=== PATIENT | male | born 1935 | race Two or more races ===

== ENCOUNTER 2023-05-28 06:35 | Inpatient (IN) | payer OTHER ==
[~2023-05-28] VITALS: Ht 170.2 cm; Wt 66.0 kg
[2023-05-28] VITALS (50 sets, daily range): BP systolic 99–131; BP diastolic 53–75; PULSE 65–184; RESP 14–26; TEMP 97.5–98.1; O2SAT 93–97
[2023-05-28] MEDS: CEFEPIME 2GM/50ML NS 50 ML IV SCH (01:10)
[2023-05-28] MEDS ORDERED: dilTIAZem 25 MG/5 ML VIAL IV ONE ×2 (06:43→07:30)
[2023-05-28] MEDS ORDERED: ETOMIDATE (2MG/ML) 20ML VIAL IV ONE (06:46)
[2023-05-28] MEDS ORDERED: ROCURONIUM 10MG/ML 10ML VIAL IV ONE (06:46)
[2023-05-28] MEDS ORDERED: methylPREDNISolone SOD SUCC 125 MG/2 ML VL ONE (06:47)
[2023-05-28] MEDS ORDERED: MIDAZOLAM DRIP 50 mg/50mL 50 ML IV ONE (06:55)
[2023-05-28] MEDS ORDERED: dilTIAZem 125mg/125ml BAG KIT 125 ML IV ONE (07:15)
[2023-05-28] MEDS ORDERED: AZITHROMYCIN 500MG/ 250ML 250 ML IV ONE (07:30)
[2023-05-28] MEDS ORDERED: cefTRIAXone 1GM/50ML D5W 50 ML IV ONE (07:30)
[2023-05-28 07:41] LABS: Basophils # (auto) 0 10 ^3/uL (0-0.2); Basophils % (auto) 0.3 % (0.0-2.0); Eosinophils # (auto) 0.1 10 ^3/uL (0-0.8); Eosinophils % (auto) 0.6 % (0.0-7.0); Hematocrit 44.3 % (41.0-53.0); Hemoglobin 14.5 g/dL (13.5-17.5); Lymphocytes % (auto) 18.1 % (10.0-50.0); Mean Corpuscular Hemoglobin 30.8 pg (28.0-32.0); Mean Corpuscular Hgb Conc. 32.7 g/dL (32.0-36.0); Mean Corpuscular Volume 94.1 fL (80.0-100.0); Monocytes # (auto) 1.1 10 ^3/uL (0-1.3); Monocytes % (auto) 6.5 % (0.0-12.0); Neutrophils # (auto) 12.5 10 ^3/uL (1.6-8.6); Neutrophils % (auto) 74.5 % (37.0-80.0); Nucleated Red Blood Cells % 0.1 %; Red Blood Cells 4.71 10^6/uL (4.5-5.90); Red Cell Distribution Width 13.9 % (11.8-14.3); White Blood Cell 16.8 10^3/uL (4.4-10.8)
[2023-05-28 07:54] LABS: Alanine Aminotransferase 46 U/L (7-40); Albumin 4.2 g/dL (3.2-4.8); Alkaline Phosphatase 103 U/L (46-116); Anion Gap 8 (5-15); Aspartate Aminotransferase 38 U/L (13-40); BUN/Creatinine Ratio 17.4 (10.0-20.0); Blood Urea Nitrogen 15 mg/dL (9-23); Calcium 8.8 mg/dL (8.5-10.1); Carbon Dioxide 27 mmol/L (20-30); Chloride 105 mmol/L (98-107); Glucose 144 mg/dL (74-106); Potassium 4.4 mmol/L (3.5-5.1); Sodium 140 mmol/L (136-145)
[2023-05-28 07:55] LABS: Bilirubin, Total 0.6 mg/dL (0.2-1.0); Total Protein 6.4 g/dL (5.7-8.2)
[2023-05-28 07:57] LABS: INR 1.36 (0.9-1.15); Partial Thromboplastin Time 32.2 SEC (24.5-34.5)
[2023-05-28] MEDS ORDERED: ACETAMINOPHEN 650 MG RECT SUPP PR ONE (08:00)
[2023-05-28 08:04] LABS: Base Excess -3.3 mmol/L (-2.0-2.0)
[2023-05-28 08:08] LABS: Urine Bacteria NONE SEEN /hpf (None Seen); Urine Blood Negative /uL (Negative); Urine Clarity Clear (Clear); Urine Hyaline Cast FEW /lpf (0 - 2); Urine Protein, UAD TRACE (Negative); Urine Specific Gravity 1.016 (1.001-1.035); Urine Urobilinogen Normal (Negative); Urine WBC 1 /hpf (0 - 3)
[2023-05-28 08:09] LABS: Urine Color Straw (Yellow)
[2023-05-28 08:37] LABS: COVID19 ANTIGEN SOFIA FIA NEGATIVE (NEGATIVE); Rapid Influenza A Negative (Negative); Rapid Influenza B Negative (Negative)
[2023-05-28] MEDS ORDERED: DIGOXIN (250MCG/ML) 2 ML AMPULE IV ONE (08:45)
[2023-05-28] MEDS ORDERED: SODIUM CHLORIDE 0.9% 500 ML IV ONE (09:00)
[2023-05-28] MEDS ORDERED: MAGNESIUM SULFATE 1GM/100ML 100 ML IV ONE (09:00)
[2023-05-28 09:39] LABS: Base Excess -1.2 mmol/L (-2.0-2.0)
[2023-05-28] MEDS ORDERED: NOREPINEPHRINE 8 MG/250ML KIT 250 ML IV SCH (10:00)
[2023-05-28] MEDS ORDERED: NOREPINEPHRINE 8 MG/250ML KIT 250 ML IV ONE ×2 (10:00→18:09)
[2023-05-28] MEDS: ENOXAPARIN SOD 40 MG/0.4 ML SYRINGE SC SCH (10:30)
[2023-05-28] MEDS ORDERED: ONDANSETRON HCL 4 MG/2 ML VIAL IV PRN (10:30)
[2023-05-28] MEDS: SODIUM CHLORIDE 0.9% 1,000 ML IV SCH ×3 (10:52→19:30)
[2023-05-28 11:01] LABS: Magnesium 1.7 mg/dL (1.6-2.6)
[2023-05-28 11:03] LABS: Phosphorus 4.1 mg/dL (2.4-5.1)
[2023-05-28] MEDS: NOREPINEPHRINE BITARTRATE 16 MG in SODIUM CHL 0.9% 234 ML IV SCH ×2 (11:24→20:14)
[2023-05-28] MEDS: MIDAZOLAM DRIP 50 mg/50mL 50 ML IV SCH ×2 (11:28→15:52)
[2023-05-28] MEDS: PHENYLEPHRINE INJ 40 MG in SODIUM CHL 0.9% 246 ML IV SCH (11:38)
[2023-05-28] MEDS: methylPREDNISolone SOD SUCC 125 MG/2 ML VL IV SCH (14:09)
[2023-05-28] MEDS ORDERED: dilTIAZem 125mg/125ml BAG KIT 125 ML IV SCH (14:15)
[2023-05-28] MEDS ORDERED: VANCOMYCIN PER PHARMACY 0 MG IV SCH (19:30)
[2023-05-28] MEDS ORDERED: VANCOMYCIN 1GM/200ML 200 ML IV ONE (20:00)
[2023-05-29] VITALS (104 sets, daily range): BP systolic 95–140; BP diastolic 56–92; PULSE 59–91; RESP 16–26; TEMP 97.2–98.2; O2SAT 96–98
[2023-05-29] MEDS: methylPREDNISolone SOD SUCC 125 MG/2 ML VL IV SCH ×3 (01:13→21:53)
[2023-05-29] MEDS: PHENYLEPHRINE INJ 40 MG in SODIUM CHL 0.9% 246 ML IV SCH ×2 (03:20→19:27)
[2023-05-29] MEDS: MIDAZOLAM DRIP 50 mg/50mL 50 ML IV SCH ×4 (03:21→22:19)
[2023-05-29 04:10] LABS: Hematocrit 44.3 % (41.0-53.0); Hemoglobin 14.6 g/dL (13.5-17.5); Mean Corpuscular Hemoglobin 30.8 pg (28.0-32.0); Mean Corpuscular Hgb Conc. 32.8 g/dL (32.0-36.0); Red Blood Cells 4.72 10^6/uL (4.5-5.90); White Blood Cell 28.7 10^3/uL (4.4-10.8)
[2023-05-29 04:25] LABS: Alanine Aminotransferase 28 U/L (7-40); Albumin 3.7 g/dL (3.2-4.8); Alkaline Phosphatase 64 U/L (46-116); Anion Gap 7 (5-15); Aspartate Aminotransferase 12 U/L (13-40); BUN/Creatinine Ratio 16.8 (10.0-20.0); Blood Urea Nitrogen 16 mg/dL (9-23); Calcium 8.5 mg/dL (8.7-10.4); Carbon Dioxide 24 mmol/L (20-30); Chloride 106 mmol/L (98-107); Glucose 200 mg/dL (74-106); Potassium 4.4 mmol/L (3.5-5.1); Sodium 137 mmol/L (136-145)
[2023-05-29 04:26] LABS: Bilirubin, Total 0.7 mg/dL (0.2-1.0); Total Protein 5.9 g/dL (5.7-8.2)
[2023-05-29 04:29] LABS: Basophils % (manual) 0 (0.0-2.0); Blast Cells 0; Eosinophils % (manual) 0 (0-7); Metamyelocytes % 0; Myelocytes % 0; Promyelocytes % 0; Reactive Lymphocytes 0
[2023-05-29 06:17] LABS: Band Neutrophils % (manual) 6; Giant Platelets Few; Lymphocytes % (manual) 4 (10.0-50.0); Monocytes % (manual) 4 (0-12); Platelet Estimate Adequate
[2023-05-29] MEDS: NOREPINEPHRINE BITARTRATE 16 MG in SODIUM CHL 0.9% 234 ML IV SCH (08:12)
[2023-05-29] MEDS: SODIUM CHLORIDE 0.9% 1,000 ML IV SCH ×2 (08:13→23:44)
[2023-05-29] MEDS ORDERED: cefTRIAXone 1GM/50ML D5W 50 ML IV SCH (09:00)
[2023-05-29] MEDS: CEFEPIME 2GM/50ML NS 50 ML IV SCH ×2 (09:10→21:53)
[2023-05-29] MEDS: ENOXAPARIN SOD 40 MG/0.4 ML SYRINGE SC SCH ×4 (09:10→21:55)
[2023-05-29] MEDS: PANTOPRAZOLE 40 MG/10 ML VIAL INJ IV SCH (09:10)
[2023-05-29] MEDS ORDERED: AZITHROMYCIN 500MG/ 250ML 250 ML IV SCH (10:00)
[2023-05-29 10:14] LABS: Base Excess -2.8 mmol/L (-2.0-2.0)
[2023-05-29] MEDS ORDERED: dilTIAZem 120MG ER CAP PO ONE (10:45)
[2023-05-29 10:46] LABS: Triglycerides 52 mg/dL (< 150)
[2023-05-29 10:47] LABS: LDL Cholesterol 22 mg/dL (< 100)
[2023-05-29 10:48] LABS: Cholesterol 75 mg/dL (< 200); HDL Cholesterol 40 mg/dL (40-59)
[2023-05-29] MEDS: IPRATROPIUM BROM 0.5 MG/2.5ML INH SOL NEB SCH ×2 (12:00→18:26)
[2023-05-29] MEDS: VANCOMYCIN 1GM/200ML 200 ML IV SCH (12:04)
[2023-05-29] MEDS: dilTIAZem HCL 60 MG TAB PO SCH ×3 (12:59→23:52)
[2023-05-29 18:59] LABS: Urine Bacteria FEW /hpf (None Seen); Urine Blood 3+ /uL (Negative); Urine Clarity CLOUDY (Clear); Urine Color BROWN (Yellow); Urine Mucus FEW (None Seen); Urine Protein, UAD 2+ (Negative); Urine Specific Gravity 1.032 (1.001-1.035); Urine Urobilinogen Normal (Negative); Urine WBC 146 /hpf (0 - 3); Urine WBC Clumps PRESENT /hpf (None Seen); Urine pH 5.5 (5.0-8.0)
[2023-05-29] MEDS ORDERED: ATORVASTATIN 20 MG TAB PO SCH (22:00)
[2023-05-30] VITALS (117 sets, daily range): BP systolic 104–149; BP diastolic 67–95; PULSE 73–99; RESP 17–25; TEMP 97.5–99; O2SAT 93–97
[2023-05-30] MEDS: IPRATROPIUM BROM 0.5 MG/2.5ML INH SOL NEB SCH ×4 (00:03→18:18)
[2023-05-30] MEDS: VANCOMYCIN 1GM/200ML 200 ML IV SCH (04:03)
[2023-05-30 04:04] LABS: Chloride 108 mmol/L (98-107); Potassium 4.2 mmol/L (3.5-5.1); Sodium 139 mmol/L (136-145)
[2023-05-30 04:05] LABS: Anion Gap 8 (5-15); Basophils # (auto) 0 10 ^3/uL (0-0.2); Basophils % (auto) 0.1 % (0.0-2.0); Calcium 8.9 mg/dL (8.5-10.1); Carbon Dioxide 23 mmol/L (20-30); Eosinophils # (auto) 0 10 ^3/uL (0-0.8); Hematocrit 38.9 % (41.0-53.0); Lymphocytes # (auto) 0.6 10 ^3/uL (0.4-5.4); Lymphocytes % (auto) 3.4 % (10.0-50.0); Mean Corpuscular Hemoglobin 31.1 pg (28.0-32.0); Mean Corpuscular Hgb Conc. 33.4 g/dL (32.0-36.0); Mean Corpuscular Volume 93.2 fL (80.0-100.0); Monocytes # (auto) 0.9 10 ^3/uL (0-1.3); Monocytes % (auto) 4.7 % (0.0-12.0); Neutrophils # (auto) 16.8 10 ^3/uL (1.6-8.6); Neutrophils % (auto) 91.8 % (37.0-80.0); Red Blood Cells 4.18 10^6/uL (4.5-5.90); Red Cell Distribution Width 14.3 % (11.8-14.3); White Blood Cell 18.3 10^3/uL (4.4-10.8)
[2023-05-30 04:10] LABS: BUN/Creatinine Ratio 22.9 (10.0-20.0); Blood Urea Nitrogen 19 mg/dL (9-23); Glucose 144 mg/dL (74-106)
[2023-05-30] MEDS: MIDAZOLAM DRIP 50 mg/50mL 50 ML IV SCH ×4 (05:02→20:21)
[2023-05-30] MEDS: dilTIAZem HCL 60 MG TAB PO SCH ×3 (06:01→17:46)
[2023-05-30 08:04] LABS: Base Excess -1.1 mmol/L (-2.0-2.0)
[2023-05-30] MEDS: SODIUM CHLORIDE 0.9% 1,000 ML IV SCH (09:56)
[2023-05-30] MEDS: PANTOPRAZOLE 40 MG/10 ML VIAL INJ IV SCH (10:02)
[2023-05-30] MEDS: methylPREDNISolone SOD SUCC 125 MG/2 ML VL IV SCH (10:02)
[2023-05-30] MEDS: ENOXAPARIN SOD 40 MG/0.4 ML SYRINGE SC SCH (10:03)
[2023-05-30] MEDS: CEFEPIME 2GM/50ML NS 50 ML IV SCH (10:03)
[2023-05-30] MEDS: NOREPINEPHRINE BITARTRATE 16 MG in SODIUM CHL 0.9% 234 ML IV SCH (11:00)
[2023-05-30] MEDS ORDERED: Jevity 1.2 Cal/Fiber 1 Liter GT SCH (12:45)
[2023-05-30] MEDS: PHENYLEPHRINE INJ 40 MG in SODIUM CHL 0.9% 246 ML IV SCH (13:00)
[2023-05-30] MEDS: ENOXAPARIN SOD 80 MG/0.8ML SYRINGE SC SCH (21:56)
[2023-05-30] MEDS: fentaNYL Drip 2500mCg/250mlNS 250 ML IV SCH (22:04)
[2023-05-31] VITALS (118 sets, daily range): BP systolic 101–166; BP diastolic 71–111; PULSE 62–96; RESP 12–60; TEMP 97–99.1; O2SAT 92–98
[2023-05-31] MEDS: IPRATROPIUM BROM 0.5 MG/2.5ML INH SOL NEB SCH ×4 (00:22→18:28)
[2023-05-31] MEDS: dilTIAZem HCL 60 MG TAB PO SCH ×4 (00:25→17:58)
[2023-05-31] MEDS: MIDAZOLAM DRIP 50 mg/50mL 50 ML IV SCH ×4 (00:34→19:48)
[2023-05-31] MEDS: SODIUM CHLORIDE 0.9% 1,000 ML IV SCH (00:34)
[2023-05-31 03:57] LABS: Basophils # (auto) 0 10 ^3/uL (0-0.2); Eosinophils # (auto) 0 10 ^3/uL (0-0.8); Hematocrit 39.7 % (41.0-53.0); Hemoglobin 13.1 g/dL (13.5-17.5); Lymphocytes # (auto) 0.6 10 ^3/uL (0.4-5.4); Lymphocytes % (auto) 4.5 % (10.0-50.0); Mean Corpuscular Hemoglobin 30.6 pg (28.0-32.0); Mean Corpuscular Volume 92.8 fL (80.0-100.0); Monocytes # (auto) 0.7 10 ^3/uL (0-1.3); Monocytes % (auto) 5.5 % (0.0-12.0); Neutrophils # (auto) 11.5 10 ^3/uL (1.6-8.6); Red Blood Cells 4.29 10^6/uL (4.5-5.90); Red Cell Distribution Width 14.4 % (11.8-14.3); White Blood Cell 12.8 10^3/uL (4.4-10.8)
[2023-05-31 04:05] LABS: Anion Gap 4 (5-15); Carbon Dioxide 25 mmol/L (20-30); Chloride 111 mmol/L (98-107); Potassium 4.4 mmol/L (3.5-5.1); Sodium 140 mmol/L (136-145)
[2023-05-31 04:06] LABS: Calcium 8.5 mg/dL (8.7-10.4)
[2023-05-31 04:11] LABS: BUN/Creatinine Ratio 21.4 (10.0-20.0); Blood Urea Nitrogen 15 mg/dL (9-23); Glucose 129 mg/dL (74-106); Magnesium 2.2 mg/dL (1.6-2.6)
[2023-05-31] MEDS: PHENYLEPHRINE INJ 40 MG in SODIUM CHL 0.9% 246 ML IV SCH ×2 (05:35→21:40)
[2023-05-31 08:35] LABS: Base Excess -3.7 mmol/L (-2.0-2.0)
[2023-05-31] MEDS ORDERED: cefTRIAXone 1GM/50ML D5W 50 ML IV SCH (09:00)
[2023-05-31] MEDS: ENOXAPARIN SOD 80 MG/0.8ML SYRINGE SC SCH ×2 (10:15→21:39)
[2023-05-31] MEDS: PANTOPRAZOLE 40 MG/10 ML VIAL INJ IV SCH (10:15)
[2023-05-31] MEDS: NOREPINEPHRINE BITARTRATE 16 MG in SODIUM CHL 0.9% 234 ML IV SCH (11:00)
[2023-05-31] MEDS ORDERED: MEROPENEM 1GM IVPB 100 ML IV ONE (15:00)
[2023-05-31] MEDS: fentaNYL Drip 2500mCg/250mlNS 250 ML IV SCH (20:15)
[2023-05-31] MEDS: MEROPENEM 1GM IVPB 100 ML IV SCH (21:39)
[2023-05-31] MEDS ORDERED: LABETALOL HCL 5 MG/ML 4ML SYRINGE IV ONE (22:15)
[2023-06-01] VITALS (119 sets, daily range): BP systolic 108–195; BP diastolic 31–125; PULSE 68–125; RESP 9–49; TEMP 98.4–100.2; O2SAT 92–98
[2023-06-01] MEDS: IPRATROPIUM BROM 0.5 MG/2.5ML INH SOL NEB SCH ×4 (00:20→18:15)
[2023-06-01] MEDS: dilTIAZem HCL 60 MG TAB PO SCH ×4 (00:20→18:12)
[2023-06-01] MEDS: MIDAZOLAM DRIP 50 mg/50mL 50 ML IV SCH (01:20)
[2023-06-01 03:54] LABS: Basophils # (auto) 0 10 ^3/uL (0-0.2); Eosinophils # (auto) 0 10 ^3/uL (0-0.8); Hemoglobin 14.1 g/dL (13.5-17.5); Lymphocytes # (auto) 0.7 10 ^3/uL (0.4-5.4); Lymphocytes % (auto) 7.2 % (10.0-50.0); Mean Corpuscular Hemoglobin 31.2 pg (28.0-32.0); Mean Corpuscular Hgb Conc. 33.5 g/dL (32.0-36.0); Mean Corpuscular Volume 93.3 fL (80.0-100.0); Monocytes # (auto) 0.9 10 ^3/uL (0-1.3); Monocytes % (auto) 8.7 % (0.0-12.0); Neutrophils # (auto) 8.6 10 ^3/uL (1.6-8.6); Neutrophils % (auto) 84.1 % (37.0-80.0); Red Cell Distribution Width 14.1 % (11.8-14.3); White Blood Cell 10.3 10^3/uL (4.4-10.8)
[2023-06-01 04:29] LABS: Anion Gap 5 (5-15); Carbon Dioxide 26 mmol/L (20-30); Chloride 110 mmol/L (98-107); Potassium 4.4 mmol/L (3.5-5.1); Sodium 141 mmol/L (136-145)
[2023-06-01 04:30] LABS: Calcium 8.6 mg/dL (8.7-10.4)
[2023-06-01 04:35] LABS: Blood Urea Nitrogen 20 mg/dL (9-23); Glucose 112 mg/dL (74-106)
[2023-06-01] MEDS: MEROPENEM 1GM IVPB 100 ML IV SCH ×3 (05:49→21:51)
[2023-06-01 09:32] LABS: Base Excess 0.3 mmol/L (-2.0-2.0)
[2023-06-01] MEDS: PANTOPRAZOLE 40 MG/10 ML VIAL INJ IV SCH (09:56)
[2023-06-01] MEDS: ENOXAPARIN SOD 80 MG/0.8ML SYRINGE SC SCH ×2 (09:57→21:51)
[2023-06-01] MEDS: NOREPINEPHRINE BITARTRATE 16 MG in SODIUM CHL 0.9% 234 ML IV SCH (09:57)
[2023-06-01] MEDS ORDERED: LISINOPRIL 10 MG TAB PO ONE (11:30)
[2023-06-01] MEDS ORDERED: FUROSEMIDE 20 MG/2 ML VIAL IV ONE (11:30)
[2023-06-01] MEDS: PHENYLEPHRINE INJ 40 MG in SODIUM CHL 0.9% 246 ML IV SCH (15:34)
[2023-06-01] MEDS: LABETALOL HCL 5 MG/ML 4ML SYRINGE IV PRN ×2 (18:11→21:52)
[2023-06-01] MEDS: fentaNYL Drip 2500mCg/250mlNS 250 ML IV SCH (20:15)
[2023-06-01] MEDS: hydrALAZINE HCL 20 MG/ML VL IV PRN (20:49)
[2023-06-02] VITALS (107 sets, daily range): BP systolic 87–172; BP diastolic 53–108; PULSE 63–106; RESP 10–42; TEMP 98.2–99.5; O2SAT 93–100
[2023-06-02] MEDS: IPRATROPIUM BROM 0.5 MG/2.5ML INH SOL NEB SCH ×4 (00:08→18:22)
[2023-06-02] MEDS: dilTIAZem HCL 60 MG TAB PO SCH ×4 (00:59→18:20)
[2023-06-02 03:54] LABS: Basophils # (auto) 0 10 ^3/uL (0-0.2); Basophils % (auto) 0.2 % (0.0-2.0); Eosinophils # (auto) 0 10 ^3/uL (0-0.8); Eosinophils % (auto) 0.1 % (0.0-7.0); Hematocrit 42.8 % (41.0-53.0); Hemoglobin 14.4 g/dL (13.5-17.5); Lymphocytes # (auto) 0.9 10 ^3/uL (0.4-5.4); Lymphocytes % (auto) 12.2 % (10.0-50.0); Mean Corpuscular Hemoglobin 31.4 pg (28.0-32.0); Mean Corpuscular Hgb Conc. 33.6 g/dL (32.0-36.0); Mean Corpuscular Volume 93.4 fL (80.0-100.0); Monocytes % (auto) 12.5 % (0.0-12.0); Neutrophils # (auto) 5.8 10 ^3/uL (1.6-8.6); Red Blood Cells 4.58 10^6/uL (4.5-5.90); White Blood Cell 7.7 10^3/uL (4.4-10.8)
[2023-06-02 04:00] LABS: Anion Gap 6 (5-15); Carbon Dioxide 27 mmol/L (20-30); Chloride 107 mmol/L (98-107); Potassium 4.2 mmol/L (3.5-5.1); Sodium 140 mmol/L (136-145)
[2023-06-02 04:01] LABS: Calcium 8.6 mg/dL (8.7-10.4)
[2023-06-02 04:06] LABS: BUN/Creatinine Ratio 33.3 (10.0-20.0); Blood Urea Nitrogen 19 mg/dL (9-23); Glucose 114 mg/dL (74-106)
[2023-06-02] MEDS: MEROPENEM 1GM IVPB 100 ML IV SCH ×3 (05:48→21:09)
[2023-06-02] MEDS: hydrALAZINE HCL 20 MG/ML VL IV PRN (06:33)
[2023-06-02] MEDS: PHENYLEPHRINE INJ 40 MG in SODIUM CHL 0.9% 246 ML IV SCH (07:40)
[2023-06-02 09:37] LABS: Base Excess 4.8 mmol/L (-2.0-2.0)
[2023-06-02] MEDS: ENOXAPARIN SOD 80 MG/0.8ML SYRINGE SC SCH ×2 (10:00→21:09)
[2023-06-02] MEDS: PANTOPRAZOLE 40 MG/10 ML VIAL INJ IV SCH (10:11)
[2023-06-02] MEDS: FUROSEMIDE 20 MG/2 ML VIAL IV SCH (10:12)
[2023-06-02] MEDS: LISINOPRIL 10 MG TAB PO SCH (10:12)
[2023-06-02] MEDS: NOREPINEPHRINE BITARTRATE 16 MG in SODIUM CHL 0.9% 234 ML IV SCH (11:00)
[2023-06-02] MEDS: MIDAZOLAM DRIP 50 mg/50mL 50 ML IV SCH (11:02)
[2023-06-02] MEDS: fentaNYL Drip 2500mCg/250mlNS 250 ML IV SCH (11:11)
[2023-06-02] MEDS: methylPREDNISolone SOD SUCC 40 MG/ML VL IV SCH ×2 (13:40→21:08)
[2023-06-02] MEDS: METOCLOPRAMIDE 10 mg/10ml ORAL soln GT SCH ×2 (14:22→21:09)
[2023-06-03] VITALS (102 sets, daily range): BP systolic 99–193; BP diastolic 57–107; PULSE 72–137; RESP 13–27; TEMP 97.7–98.6; O2SAT 93–100
[2023-06-03] MEDS: IPRATROPIUM BROM 0.5 MG/2.5ML INH SOL NEB SCH ×4 (00:16→18:55)
[2023-06-03] MEDS: PHENYLEPHRINE INJ 40 MG in SODIUM CHL 0.9% 246 ML IV SCH ×2 (00:20→13:06)
[2023-06-03] MEDS: dilTIAZem HCL 60 MG TAB PO SCH ×4 (01:40→18:20)
[2023-06-03 04:22] LABS: Basophils # (auto) 0 10 ^3/uL (0-0.2); Eosinophils # (auto) 0 10 ^3/uL (0-0.8); Hematocrit 42.8 % (41.0-53.0); Hemoglobin 14.1 g/dL (13.5-17.5); Lymphocytes # (auto) 0.6 10 ^3/uL (0.4-5.4); Lymphocytes % (auto) 11.7 % (10.0-50.0); Mean Corpuscular Hemoglobin 30.7 pg (28.0-32.0); Mean Corpuscular Hgb Conc. 32.9 g/dL (32.0-36.0); Mean Corpuscular Volume 93.3 fL (80.0-100.0); Monocytes # (auto) 0.2 10 ^3/uL (0-1.3); Neutrophils # (auto) 4.2 10 ^3/uL (1.6-8.6); Neutrophils % (auto) 84.3 % (37.0-80.0); Nucleated Red Blood Cells % 0.1 %; Red Blood Cells 4.58 10^6/uL (4.5-5.90); Red Cell Distribution Width 13.8 % (11.8-14.3)
[2023-06-03 04:42] LABS: Alanine Aminotransferase 32 U/L (7-40); Albumin 3.3 g/dL (3.2-4.8); Alkaline Phosphatase 51 U/L (46-116); Anion Gap 8 (5-15); Aspartate Aminotransferase 12 U/L (13-40); BUN/Creatinine Ratio 31.7 (10.0-20.0); Blood Urea Nitrogen 19 mg/dL (9-23); Calcium 8.7 mg/dL (8.7-10.4); Carbon Dioxide 27 mmol/L (20-30); Chloride 104 mmol/L (98-107); Glucose 145 mg/dL (74-106); Potassium 4.5 mmol/L (3.5-5.1); Sodium 139 mmol/L (136-145)
[2023-06-03 04:43] LABS: Bilirubin, Total 0.7 mg/dL (0.2-1.0); Total Protein 5.4 g/dL (5.7-8.2)
[2023-06-03] MEDS: METOCLOPRAMIDE 10 mg/10ml ORAL soln GT SCH ×3 (05:28→21:09)
[2023-06-03] MEDS: methylPREDNISolone SOD SUCC 40 MG/ML VL IV SCH ×3 (05:28→23:07)
[2023-06-03] MEDS: MEROPENEM 1GM IVPB 100 ML IV SCH ×3 (05:28→23:02)
[2023-06-03] MEDS: MIDAZOLAM DRIP 50 mg/50mL 50 ML IV SCH (05:29)
[2023-06-03] MEDS: PANTOPRAZOLE 40 MG/10 ML VIAL INJ IV SCH (09:56)
[2023-06-03] MEDS: LISINOPRIL 10 MG TAB PO SCH (09:57)
[2023-06-03] MEDS: FUROSEMIDE 20 MG/2 ML VIAL IV SCH (09:58)
[2023-06-03] MEDS: ENOXAPARIN SOD 80 MG/0.8ML SYRINGE SC SCH ×2 (09:59→23:01)
[2023-06-03] MEDS: NOREPINEPHRINE BITARTRATE 16 MG in SODIUM CHL 0.9% 234 ML IV SCH (11:00)
[2023-06-03] MEDS: LABETALOL HCL 5 MG/ML 4ML SYRINGE IV PRN (14:35)
[2023-06-03] MEDS: fentaNYL Drip 2500mCg/250mlNS 250 ML IV SCH (20:15)
[2023-06-03] MEDS ORDERED: dilTIAZem 25 MG/5 ML VIAL IV ONE (21:15)
[2023-06-04] VITALS (108 sets, daily range): BP systolic 111–215; BP diastolic 63–167; PULSE 92–147; RESP 13–31; TEMP 98.1–100.4; O2SAT 75–100
[2023-06-04] MEDS: dilTIAZem HCL 60 MG TAB PO SCH ×2 (00:20→06:03)
[2023-06-04] MEDS: IPRATROPIUM BROM 0.5 MG/2.5ML INH SOL NEB SCH ×4 (00:47→18:23)
[2023-06-04 04:12] LABS: Basophils # (auto) 0 10 ^3/uL (0-0.2); Basophils % (auto) 0.1 % (0.0-2.0); Eosinophils # (auto) 0 10 ^3/uL (0-0.8); Hematocrit 41.5 % (41.0-53.0); Hemoglobin 14.2 g/dL (13.5-17.5); Lymphocytes # (auto) 0.5 10 ^3/uL (0.4-5.4); Lymphocytes % (auto) 4.9 % (10.0-50.0); Mean Corpuscular Hemoglobin 31.2 pg (28.0-32.0); Mean Corpuscular Hgb Conc. 34.2 g/dL (32.0-36.0); Mean Corpuscular Volume 91.1 fL (80.0-100.0); Monocytes # (auto) 0.5 10 ^3/uL (0-1.3); Monocytes % (auto) 5.2 % (0.0-12.0); Neutrophils % (auto) 89.8 % (37.0-80.0); Red Blood Cells 4.56 10^6/uL (4.5-5.90); Red Cell Distribution Width 13.8 % (11.8-14.3); White Blood Cell 10.1 10^3/uL (4.4-10.8)
[2023-06-04 04:22] LABS: Chloride 105 mmol/L (98-107); Potassium 4.1 mmol/L (3.5-5.1); Sodium 142 mmol/L (136-145)
[2023-06-04 04:23] LABS: Anion Gap 6 (5-15); Carbon Dioxide 31 mmol/L (20-30)
[2023-06-04 04:24] LABS: Calcium 8.8 mg/dL (8.7-10.4)
[2023-06-04 04:28] LABS: Glucose 130 mg/dL (74-106)
[2023-06-04 04:29] LABS: BUN/Creatinine Ratio 41.9 (10.0-20.0); Blood Urea Nitrogen 26 mg/dL (9-23)
[2023-06-04] MEDS: METOCLOPRAMIDE 10 mg/10ml ORAL soln GT SCH ×2 (05:23→14:10)
[2023-06-04] MEDS: methylPREDNISolone SOD SUCC 40 MG/ML VL IV SCH ×2 (06:03→22:40)
[2023-06-04] MEDS: MEROPENEM 1GM IVPB 100 ML IV SCH ×3 (06:03→22:41)
[2023-06-04] MEDS: hydrALAZINE HCL 20 MG/ML VL IV PRN (06:04)
[2023-06-04] MEDS: LABETALOL HCL 5 MG/ML 4ML SYRINGE IV PRN ×3 (07:42→23:27)
[2023-06-04] MEDS: PHENYLEPHRINE INJ 40 MG in SODIUM CHL 0.9% 246 ML IV SCH (09:09)
[2023-06-04] MEDS: NOREPINEPHRINE BITARTRATE 16 MG in SODIUM CHL 0.9% 234 ML IV SCH (09:10)
[2023-06-04] MEDS: MIDAZOLAM DRIP 50 mg/50mL 50 ML IV SCH (09:11)
[2023-06-04] MEDS: LISINOPRIL 10 MG TAB PO SCH (10:00)
[2023-06-04] MEDS: PANTOPRAZOLE 40 MG/10 ML VIAL INJ IV SCH (10:21)
[2023-06-04] MEDS: ENOXAPARIN SOD 80 MG/0.8ML SYRINGE SC SCH ×2 (10:22→22:41)
[2023-06-04] MEDS: FUROSEMIDE 20 MG/2 ML VIAL IV SCH (10:22)
[2023-06-04] MEDS ORDERED: dilTIAZem 125mg/125ml BAG KIT 125 ML IV SCH (11:30)
[2023-06-04] MEDS ORDERED: DIGOXIN (250MCG/ML) 2 ML AMPULE IV ONE (15:00)
[2023-06-05] VITALS (31 sets, daily range): BP systolic 144–183; BP diastolic 82–114; PULSE 92–108; RESP 14–25; TEMP 97.7–98.4; O2SAT 93–100
[2023-06-05] MEDS: IPRATROPIUM BROM 0.5 MG/2.5ML INH SOL NEB SCH ×4 (00:08→18:19)
[2023-06-05] MEDS ORDERED: dilTIAZem 25 MG/5 ML VIAL IV ONE (01:15)
[2023-06-05] MEDS: LABETALOL HCL 5 MG/ML 4ML SYRINGE IV PRN ×3 (03:24→13:13)
[2023-06-05 04:23] LABS: Anion Gap 8 (5-15); Carbon Dioxide 30 mmol/L (20-30); Chloride 105 mmol/L (98-107); Potassium 3.8 mmol/L (3.5-5.1); Sodium 143 mmol/L (136-145)
[2023-06-05 04:29] LABS: BUN/Creatinine Ratio 33.9 (10.0-20.0); Blood Urea Nitrogen 21 mg/dL (9-23); Glucose 124 mg/dL (74-106)
[2023-06-05 04:30] LABS: Basophils # (auto) 0 10 ^3/uL (0-0.2); Basophils % (auto) 0.1 % (0.0-2.0); Eosinophils # (auto) 0 10 ^3/uL (0-0.8); Hematocrit 43.3 % (41.0-53.0); Hemoglobin 14.5 g/dL (13.5-17.5); Lymphocytes # (auto) 0.5 10 ^3/uL (0.4-5.4); Lymphocytes % (auto) 5.2 % (10.0-50.0); Mean Corpuscular Hgb Conc. 33.5 g/dL (32.0-36.0); Mean Corpuscular Volume 92.6 fL (80.0-100.0); Monocytes # (auto) 0.8 10 ^3/uL (0-1.3); Monocytes % (auto) 8.2 % (0.0-12.0); Neutrophils # (auto) 8.6 10 ^3/uL (1.6-8.6); Neutrophils % (auto) 86.5 % (37.0-80.0); Red Blood Cells 4.68 10^6/uL (4.5-5.90); Red Cell Distribution Width 14.1 % (11.8-14.3)
[2023-06-05] MEDS: MEROPENEM 1GM IVPB 100 ML IV SCH ×3 (05:09→21:52)
[2023-06-05] MEDS ORDERED: LISINOPRIL 20 MG TAB PO SCH (09:00)
[2023-06-05] MEDS ORDERED: MET50T PO (09:13)
[2023-06-05] MEDS ORDERED: FUR20T PO (09:13)
[2023-06-05] MEDS ORDERED: DABI1CAP PO (09:13)
[2023-06-05] MEDS ORDERED: TERA10CA36 PO (09:13)
[2023-06-05] MEDS ORDERED: FLUT1AER6 INH (09:13)
[2023-06-05] MEDS ORDERED: LISI2.5T47 PO (09:13)
[2023-06-05] MEDS: methylPREDNISolone SOD SUCC 40 MG/ML VL IV SCH (11:53)
[2023-06-05] MEDS: PANTOPRAZOLE 40 MG/10 ML VIAL INJ IV SCH (11:53)
[2023-06-05] MEDS: FUROSEMIDE 20 MG/2 ML VIAL IV SCH (11:57)
[2023-06-05] MEDS: dilTIAZem HCL 60 MG TAB PO SCH ×2 (11:58→12:00)
[2023-06-05] MEDS ORDERED: dilTIAZem 120MG ER CAP PO ONE (15:00)
[2023-06-05] MEDS ORDERED: hydrALAZINE HCL 20 MG/ML VL IV PRN (16:00)
[2023-06-05] MEDS ORDERED: LISINOPRIL 20 MG TAB PO ONE (19:30)
[2023-06-05] MEDS: DABIGATRAN 75 MG CAP PO SCH (21:51)
[2023-06-06] VITALS (14 sets, daily range): BP systolic 116–152; BP diastolic 68–85; PULSE 90–108; RESP 16–20; TEMP 97.9–98.5; O2SAT 95–100
[2023-06-06] MEDS: MEROPENEM 1GM IVPB 100 ML IV SCH (05:44)
[2023-06-06] MEDS: IPRATROPIUM BROM 0.5 MG/2.5ML INH SOL NEB SCH ×4 (06:24→18:24)
[2023-06-06 06:36] LABS: Chloride 102 mmol/L (98-107); Potassium 3.7 mmol/L (3.5-5.1); Sodium 140 mmol/L (136-145)
[2023-06-06 06:37] LABS: Anion Gap 4 (5-15); Calcium 8.7 mg/dL (8.7-10.4); Carbon Dioxide 34 mmol/L (20-30)
[2023-06-06 06:42] LABS: BUN/Creatinine Ratio 36.5 (10.0-20.0); Blood Urea Nitrogen 23 mg/dL (9-23); Glucose 105 mg/dL (74-106)
[2023-06-06 07:13] LABS: Basophils # (auto) 0 10 ^3/uL (0-0.2); Basophils % (auto) 0.1 % (0.0-2.0); Eosinophils # (auto) 0 10 ^3/uL (0-0.8); Hematocrit 43.9 % (41.0-53.0); Lymphocytes # (auto) 1.1 10 ^3/uL (0.4-5.4); Lymphocytes % (auto) 12.7 % (10.0-50.0); Mean Corpuscular Hemoglobin 31.5 pg (28.0-32.0); Mean Corpuscular Hgb Conc. 34.2 g/dL (32.0-36.0); Mean Corpuscular Volume 92.1 fL (80.0-100.0); Monocytes # (auto) 1.2 10 ^3/uL (0-1.3); Monocytes % (auto) 13.8 % (0.0-12.0); Neutrophils # (auto) 6.6 10 ^3/uL (1.6-8.6); Neutrophils % (auto) 73.4 % (37.0-80.0); Red Blood Cells 4.77 10^6/uL (4.5-5.90); Red Cell Distribution Width 13.5 % (11.8-14.3)
[2023-06-06] MEDS: PANTOPRAZOLE 40 MG/10 ML VIAL INJ IV SCH (08:52)
[2023-06-06] MEDS: FUROSEMIDE 20 MG/2 ML VIAL IV SCH (08:52)
[2023-06-06] MEDS: levoFLOXacin 500 MG TAB PO SCH (08:53)
[2023-06-06] MEDS: dilTIAZem 120MG ER CAP PO SCH (08:54)
[2023-06-06] MEDS: LISINOPRIL 20 MG TAB PO SCH (08:54)
[2023-06-06] MEDS: DABIGATRAN 75 MG CAP PO SCH (09:14)
[2023-06-06] MEDS ORDERED: predniSONE 20 MG TAB PO SCH (10:00)
[2023-06-06] MEDS ORDERED: DIGOXIN (250MCG/ML) 2 ML AMPULE IV ONE (11:15)
[2023-06-06] MEDS ORDERED: POTASSIUM CHL 20 Meq TABLET PO ONE (11:15)
[2023-06-07] VITALS (13 sets, daily range): BP systolic 122–150; BP diastolic 67–99; PULSE 66–122; RESP 16–20; TEMP 97.9–98.4; O2SAT 91–100
[2023-06-07] MEDS: IPRATROPIUM BROM 0.5 MG/2.5ML INH SOL NEB SCH ×4 (00:46→18:45)
[2023-06-07 06:26] LABS: Basophils # (auto) 0 10 ^3/uL (0-0.2); Basophils % (auto) 0.2 % (0.0-2.0); Eosinophils # (auto) 0 10 ^3/uL (0-0.8); Eosinophils % (auto) 0.1 % (0.0-7.0); Hemoglobin 15.4 g/dL (13.5-17.5); Lymphocytes # (auto) 1.4 10 ^3/uL (0.4-5.4); Lymphocytes % (auto) 11.4 % (10.0-50.0); Mean Corpuscular Hemoglobin 30.4 pg (28.0-32.0); Mean Corpuscular Hgb Conc. 32.8 g/dL (32.0-36.0); Mean Corpuscular Volume 92.8 fL (80.0-100.0); Monocytes # (auto) 1.4 10 ^3/uL (0-1.3); Monocytes % (auto) 11.9 % (0.0-12.0); Neutrophils # (auto) 9.2 10 ^3/uL (1.6-8.6); Neutrophils % (auto) 76.4 % (37.0-80.0); Nucleated Red Blood Cells % 0.1 %; Red Blood Cells 5.06 10^6/uL (4.5-5.90); Red Cell Distribution Width 13.5 % (11.8-14.3)
[2023-06-07 06:31] LABS: Chloride 104 mmol/L (98-107); Potassium 3.9 mmol/L (3.5-5.1); Sodium 141 mmol/L (136-145)
[2023-06-07 06:32] LABS: Anion Gap 3 (5-15); Carbon Dioxide 34 mmol/L (20-30)
[2023-06-07 06:33] LABS: Calcium 8.6 mg/dL (8.7-10.4)
[2023-06-07 06:37] LABS: BUN/Creatinine Ratio 30.8 (10.0-20.0); Blood Urea Nitrogen 20 mg/dL (9-23); Glucose 110 mg/dL (74-106)
[2023-06-07] MEDS ORDERED: cloNIDine HCL 0.1 MG TAB PO PRN (09:45)
[2023-06-07] MEDS: PANTOPRAZOLE 40 MG TAB PO SCH (09:54)
[2023-06-07] MEDS: levoFLOXacin 500 MG TAB PO SCH (09:54)
[2023-06-07] MEDS: DIGOXIN 0.125 MG TAB PO SCH (09:54)
[2023-06-07] MEDS: LISINOPRIL 20 MG TAB PO SCH (09:55)
[2023-06-07] MEDS: dilTIAZem 120MG ER CAP PO SCH (09:55)
[2023-06-07] MEDS: FUROSEMIDE 20 MG/2 ML VIAL IV SCH (09:56)
[2023-06-07] MEDS: predniSONE 20 MG TAB PO SCH (09:56)
[2023-06-07] MEDS ORDERED: ACETAMINOPHEN 500 MG TAB PO PRN (13:45)
[2023-06-07] MEDS ORDERED: DABIGATRAN 75 MG CAP PO SCH (22:00)
[2023-06-08] VITALS (17 sets, daily range): BP systolic 111–142; BP diastolic 61–89; PULSE 82–110; RESP 16–20; TEMP 97.7–98.7; O2SAT 93–99
[2023-06-08] MEDS: IPRATROPIUM BROM 0.5 MG/2.5ML INH SOL NEB SCH ×4 (00:12→19:05)
[2023-06-08 06:46] LABS: Basophils # (auto) 0 10 ^3/uL (0-0.2); Basophils % (auto) 0.1 % (0.0-2.0); Eosinophils # (auto) 0 10 ^3/uL (0-0.8); Eosinophils % (auto) 0.1 % (0.0-7.0); Hematocrit 47.4 % (41.0-53.0); Hemoglobin 15.5 g/dL (13.5-17.5); Lymphocytes # (auto) 1.7 10 ^3/uL (0.4-5.4); Lymphocytes % (auto) 12.1 % (10.0-50.0); Mean Corpuscular Hemoglobin 30.2 pg (28.0-32.0); Mean Corpuscular Hgb Conc. 32.7 g/dL (32.0-36.0); Mean Corpuscular Volume 92.4 fL (80.0-100.0); Monocytes # (auto) 1.4 10 ^3/uL (0-1.3); Neutrophils # (auto) 10.6 10 ^3/uL (1.6-8.6); Neutrophils % (auto) 77.7 % (37.0-80.0); Red Blood Cells 5.13 10^6/uL (4.5-5.90); Red Cell Distribution Width 13.8 % (11.8-14.3); White Blood Cell 13.6 10^3/uL (4.4-10.8)
[2023-06-08 07:10] LABS: Anion Gap 3 (5-15); Carbon Dioxide 34 mmol/L (20-30); Chloride 104 mmol/L (98-107); Potassium 3.8 mmol/L (3.5-5.1); Sodium 141 mmol/L (136-145)
[2023-06-08 07:16] LABS: Blood Urea Nitrogen 20 mg/dL (9-23); Glucose 89 mg/dL (74-106)
[2023-06-08] MEDS: DIGOXIN 0.125 MG TAB PO SCH (09:25)
[2023-06-08] MEDS: dilTIAZem 120MG ER CAP PO SCH (09:26)
[2023-06-08] MEDS: LISINOPRIL 20 MG TAB PO SCH (09:27)
[2023-06-08] MEDS: PANTOPRAZOLE 40 MG TAB PO SCH (09:27)
[2023-06-08] MEDS: predniSONE 20 MG TAB PO SCH (09:28)
[2023-06-08] MEDS: levoFLOXacin 500 MG TAB PO SCH (09:28)
[2023-06-08] MEDS: FUROSEMIDE 20 MG/2 ML VIAL IV SCH (09:28)
== END 2023-06-08 22:26 | disposition short-term general hospital (02) | DRG 870 ==
LOC: EDBD 06:35 → ER 06:35 → EDSEX 06:35 → TELE 10:42 → ICU WEST 14:32 → ICU CENTRL 06-05 06:13 → TELE-EAST 06-05 09:58
PROVIDERS: ADMIT Internal Medicine; ATTEND Emergency Medicine
PROC: 5A1955Z Respiratory Ventilation, Greater than 96 Consecutive Hours (ICD-10-PCS; principal; 2023-05-28)
PROC: 0BH17EZ Insertion of Endotracheal Airway into Trachea, Via Natural or Artificial Opening (ICD-10-PCS; 2023-05-28)
PROC: 05PYX3Z Removal of Infusion Device from Upper Vein, External Approach (ICD-10-PCS; 2023-06-04)
PROC: 05HA33Z Insertion of Infusion Device into Left Brachial Vein, Percutaneous Approach (ICD-10-PCS; 2023-06-04)
PROC: B54NZZA Ultrasonography of Left Upper Extremity Veins, Guidance (ICD-10-PCS; 2023-06-04)
DX: A41.50 Gram-negative sepsis, unspecified (principal); I21.A1 Myocardial infarction type 2; J96.21 Acute and chronic respiratory failure with hypoxia; I50.31 Acute diastolic (congestive) heart failure; J15.61 Pneumonia due to Acinetobacter baumannii; R65.21 Severe sepsis with septic shock; E87.20 Acidosis, unspecified; J44.0 Chronic obstructive pulmonary disease with (acute) lower respiratory infection; J44.1 Chronic obstructive pulmonary disease with (acute) exacerbation; D68.69 Other thrombophilia; Z20.822 Contact with and (suspected) exposure to COVID-19; I48.0 Paroxysmal atrial fibrillation; E78.5 Hyperlipidemia, unspecified; I11.0 Hypertensive heart disease with heart failure; D72.829 Elevated white blood cell count, unspecified; I16.0 Hypertensive urgency; Z79.01 Long term (current) use of anticoagulants; I25.2 Old myocardial infarction
CPT/HCPCS: 31500; 36415; 36556; 36600; 70450; 71045; 71250; 80048; 80053; 80061; 80202; 81001; 82805; 83036; 83605; 83735; 83880; 84100; 84439; 84443; 84484; 85007; 85025; 85027; 85610; 85730; 87040; 87070; 87077; 87081; 87086; 87186; 87205; 87426; 87804; 92610; 93005; 93306; 94002; 94003; 94640; 96365; 96366; 96367; 96368; 96375; 97110; 97116; 97163; 97530; 99291; A4618; C9113; G0378; J0692; J2185; J2250; J3490

== ENCOUNTER 2024-05-31 10:35 | Inpatient (IN) | payer OTHER ==
[~2024-05-31] VITALS: Ht 165.1 cm; Wt 66.5 kg
[~2024-05-31 10:35] MED LIST: ATOR20TA PO; DABI1CAP PO; DILT180C52 PO; FLUT1AER6 INH; FURO20TA4 PO; GABA-1308 PO; LISI2.5T47 PO; MET50T PO; TERA10CA36 PO; TIOT17SP IN
[2024-05-31] MEDS: methylPREDNISolone SOD SUCC 125 MG/2 ML VL IV ONE (11:06)
[2024-05-31] MEDS: IPRATROPIUM BROM 0.5 MG/2.5ML INH SOL NEB ONE ×2 (11:09→21:30)
[2024-05-31] MEDS: ALBUTEROL SULF 2.5 MG/0.5ML(0.5%) NEB SOLN NEB ONE ×2 (11:09→21:30)
[2024-05-31 11:33] LABS: Basophils # (auto) 0.1 10 ^3/uL (0-0.2); Basophils % (auto) 0.7 % (0.0-2.0); Eosinophils # (auto) 0 10 ^3/uL (0-0.8); Eosinophils % (auto) 0.2 % (0.0-7.0); Hematocrit 44.6 % (41.0-53.0); Hemoglobin 14.9 g/dL (13.5-17.5); Lymphocytes % (auto) 11.8 % (10.0-50.0); Mean Corpuscular Hemoglobin 31.2 pg (28.0-32.0); Mean Corpuscular Hgb Conc. 33.5 g/dL (32.0-36.0); Mean Corpuscular Volume 93.2 fL (80.0-100.0); Monocytes # (auto) 1.3 10 ^3/uL (0-1.3); Monocytes % (auto) 15.9 % (0.0-12.0); Neutrophils % (auto) 71.4 % (37.0-80.0); Nucleated Red Blood Cells % 0.2 %; Platelet Count (auto) 191 10^3/uL (140-450); Red Blood Cells 4.78 10^6/uL (4.5-5.90); Red Cell Distribution Width 15.5 % (11.8-14.3); White Blood Cell 8.4 10^3/uL (4.4-10.8)
[2024-05-31 11:36] LABS: Chloride 104 mmol/L (98-107); Potassium 4.4 mmol/L (3.5-5.1)
[2024-05-31 11:37] LABS: Anion Gap 8 (5-15); Carbon Dioxide 24 mmol/L (20-31)
[2024-05-31 11:38] LABS: Calcium 9.4 mg/dL (8.7-10.4); Sodium 136 mmol/L (136-145)
[2024-05-31 11:42] LABS: Blood Urea Nitrogen 14 mg/dL (9-23); Glucose 93 mg/dL (74-106)
--- NOTE | 2024-05-31 11:51 | ED.PDOC ---
History of Present Illness HPI Comments 89 y/o M is BIBA for c/o shortness of breath, cough, and productive congestion, today. Per EMS report, patient endorses on unprovoked onset of progressively worsening symptoms for the past 2x days. Patient was commented on being found on scene by EMS staff in AFIB RVR at a rate between the 120's-140's, while on his home O2 that he takes as needed, with rhonchi in his right-lobe. Patient is stated to have a Hx of previous intubation and extubation following PNA Dx with previous onset of similar episode of symptoms 1x year ago. Patient endorses on no recent sick contact, travel, or any additional relevant or pertinent Hx. He denies having any chest pain, palpitations, hemoptysis, fever, chills, or other associated symptoms or modifiers at this time. Chief Complaint: Shortness of Breath Time Seen by MD: 09:50 Reviewed Notes: Nurses Notes, Medications, Allergies Allergies: Coded Allergies: NO KNOWN ALLERGIES (Unverified , 05/28/23) Home Meds Reported Medications Terazosin Hcl (Terazosin Hcl) 10 Mg Cap, 1 CAP PO DAILY 06/05/23 Lisinopril (Lisinopril) 2.5 Mg Tab, 1 TAB PO DAILY 06/05/23 Metoprolol Tartrate (LOPRESSOR TABLET) 50 Mg Tb, 1 TAB PO DAILY 06/05/23 Dabigatran Etexilate Mesylate (Pradaxa) 110 Mg Cap, CAP PO 06/05/23 Fluticasone-Salmeterol (Wixela Inhub 250-50 Mcg/Dose) 1 Aer Aer, 1 PUFF INH BID 06/05/23 Furosemide (Furosemide) 20 Mg Tab, 1 TAB PO DAILY 06/05/23 Information Source: Patient Mode of Arrival: EMS Severity: Moderate Timing: Days Duration: Since onset Prehospital treatment: None Past Medical History PAST MEDICAL HISTORY: AFIB (w/RVR w/secondary coagulopathy), CHF, COPD, HTN, MO (NSTEMI type II) Past Medical History (Other): septic shock d/t PNA, acute respiratory failure, metabolic acidosis Surgical History: Denies all surgeries Family History Family History: Unknown Social History Smoker: Non-Smoker Alcohol: Denies ETOH Use Drugs: Denies Drug Use Lives In: Home EENTM: reports: others (congestion ) Respiratory: reports: cough, shortness of breath All Other Systems: Reviewed and Negative (negative unless otherwise stated a lefty or in HPI) Physical Exam General Appearance: Severe Distress HEENT: Normal ENT Inspection, Pharynx Normal, TMs Normal Neck: Full Range of Motion, Non-Tender, Normal, Normal Inspection Respiratory: No Accessory Muscle Use, Respiratory Distress Cardiovascular: Irregular, Tachycardia Breast Exam: Deferred Gastrointestinal: No Organomegaly, Non Tender, No Pulsatile Mass, Normal Bowel Sounds, Soft Genitalia: Deferred Pelvic: Deferred Rectal: Deferred Extremities: No calf tenderness, Normal capillary refill, Normal inspection, Normal range of motion, Non-tender, No pedal edema Musculoskeletal : Apperance: Normal Neurologic: Alert Cerebellar Function: NOT DONE Reflexes: NOT DONE Skin: Dry, Normal Color, Warm Lymphatic: No Adenopathy Was a procedure done? Was a procedure done?: No EKG EKG : Pulse Rate (adult): 129 [place]: Normal Cardiac Rhythm: Afib Block: None Hypertrophy: None ST: Normal Differential Dx Considerations may include: AFIB, CHF, exacerbation, COPD exacerbation, URI, PNA, MO, ACS X-Ray, Labs, Meds, VS Vital Signs Date Time Temp Pulse Resp B/P (MAP) Pulse Ox O2 Delivery O2 Flow Rate FiO2 05/31/24 16:26 87 16 92 05/31/24 16:00 94 05/31/24 12:59 92 Nasal Cannula* 2 05/31/24 12:57 125 18 115/61 (79) 92 05/31/24 12:57 126 18 92 Nasal Cannula* 2 05/31/24 12:47 129 05/31/24 11:51 129 05/31/24 11:11 18 94 Nasal Cannula* 2 05/31/24 10:46 98.5 135 26 86/0 (28) 94 05/31/24 10:40 129 Lab Test 05/31/24 11:07 Range/Units White Blood Count 8.4 4.4-10.8 10^3/uL Red Blood Count 4.78 4.5-5.90 10^6/uL Hemoglobin 14.9 13.5-17.5 g/dL Hematocrit 44.6 41.0-53.0 % Mean Corpuscular Volume 93.2 80.0-100.0 fL Mean Corpuscular Hemoglobin 31.2 28.0-32.0 pg Mean Corpuscular Hemoglobin Concent 33.5 32.0-36.0 g/dL Red Cell Distribution Width 15.5 H 11.8-14.3 % Platelet Count 191 140-450 10^3/uL Mean Platelet Volume 8.3 6.9-10.8 fL Neutrophils (%) (Auto) 71.4 37.0-80.0 % Lymphocytes (%) (Auto) 11.8 10.0-50.0 % Monocytes (%) (Auto) 15.9 H 0.0-12.0 % Eosinophils (%) (Auto) 0.2 0.0-7.0 % Basophils (%) (Auto) 0.7 0.0-2.0 % Neutrophils # (Auto) 6.0 1.6-8.6 10 ^3/uL Lymphocytes # (Auto) 1.0 0.4-5.4 10 ^3/uL Monocytes # (Auto) 1.3 0-1.3 10 ^3/uL Eosinophils # (Auto) 0 0-0.8 10 ^3/uL Basophils # (Auto) 0.1 0-0.2 10 ^3/uL Nucleated Red Blood Cells 0.2 % Sodium Level 136 136-145 mmol/L Potassium Level 4.4 3.5-5.1 mmol/L Chloride Level 104 98-107 mmol/L Carbon Dioxide Level 24 20-31 mmol/L Anion Gap 8 5-15 Blood Urea Nitrogen 14 9-23 mg/dL Creatinine 1.00 0.700-1.30 mg/dL Glomerular Filtration Rate Calc 72 >90 mL/min BUN/Creatinine Ratio 14.0 10.0-20.0 Serum Glucose 93 74-106 mg/dL Calcium Level 9.4 8.7-10.4 mg/dL Troponin I High Sensitivity 4 </=54 ng/L Current Medications Medications (Trade) Dose Ordered Sig/Xavi Route Start Time Stop Time Status Last Admin Magnesium Sulfate/ Dextrose 100 ml @ 100 mls/hr ONCE ONCE IV 05/31/24 11:00 05/31/24 11:59 DC 05/31/24 12:39 Methylprednisolone Sodium Succinate (Solu Medrol) 125 mg ONCE ONCE IV 05/31/24 11:00 05/31/24 11:01 DC 05/31/24 11:06 Albuterol (Ventolin Medneb) 5 mg ONCE ONCE NEB 05/31/24 11:00 05/31/24 11:01 DC 05/31/24 11:09 Ipratropium [place] (Atrovent Medneb) 0.5 mg ONCE ONCE NEB 05/31/24 11:00 05/31/24 11:01 DC 05/31/24 11:09 Amiodarone HCl 100 ml @ 618 mls/hr ONCE ONCE IV 05/31/24 13:00 05/31/24 13:26 DC 05/31/24 13:04 Amiodarone HCl 250 ml @ 33.333 mls/ hr Q7H30M IV 05/31/24 13:15 05/31/24 19:14 05/31/24 14:20 Patient alert. Complaining of shortness a breath. EKG shows atrial fibrillation. Using accessory muscles. Placed on oxygen. Was given steroid. Was given breathing treatment. Was given magnesium. Started amiodarone. Patient critical. Has been intubated in the past. Reviewed his previous visit. Spoke with [facility] physician. Explained to the patient. Continue cardiac monitoring. [facility] approved inpatient admission [phone]. [place] [address] Ph: [phone] DIAGNOSTIC IMAGING Diagnostic Imaging Report : [id number] Signed PATIENT: ILENE CHAMBERS ACCT: [id number] UNIT: [id number] : 1935 LOC: ER ROOM / BED: / AGE / SEX: 89 / M ADM STATUS: REG ER SERVICE 1054 ORDERING PHYSICIAN: JUAN M KENDRICK MD PROCEDURE(s): CXRP - CHEST PORTABLE REASON: sob ORDER NUMBER(s): [id number], ACCESSION NUMBER(s): [id number] CHEST RADIOGRAPH Indication: sob Technique: Single frontal view of the chest was obtained Comparison: XY CHEST XRAY 1 VIEW on DOS: 06/06/23 FINDINGS: Lines and Tubes: None Lungs: Bilateral interstitial prominence. No focal consolidation. Pleura: No effusion. No pneumothorax. Cardiomediastinal contours: Unremarkable Bones: No acute osseous abnormality. IMPRESSION: 1. Bilateral interstitial prominence which may reflect chronic congestion or interstitial lung disease. ATED BY: HARIKA FRANCIS MD DICTATED DATE/TIME: 05/31/244 SIGNED BY: HARIKA FRANCIS MD SIGNED DATE/TIME: 05/31/244 CC: Time of 1ST Reevaluation: 10:20 Reevaluation 1ST: Unchanged Patient Education/Counseling: Diagnosis, Treatment Family Education/Counseling: No Family Present Additional Information I reviewed the following notes from patient's past medical encounters: discharge summary on 06/07/23 The following tests were ordered, and results were reviewed by me: BMP, UA, CBC, troponin I discussed treatment and results with medical personnel Departure 1 Departure Time of Disposition: 12:53 Impression: Primary Impression: Atrial fibrillation Qualified Codes: I48.0 - Paroxysmal atrial fibrillation Additional Impressions: COPD exacerbation Acute respiratory failure Qualified Codes: J96.01 - Acute respiratory failure with hypoxia Disposition: 09 ADMITTED INPATIENT Admit to: Med Surg Condition: Guarded Critical Care Note Critical Care Time?: Yes (90 min-critical care time only) Stability Stability form required: No Heart Score Heart Score: Heart Score Response (Comments) Value History Moderate Suspicious 1 EKG Repolarization Disturb 1 Age >65 2 Risk Factors >3 or Hx ASHD 2 Troponin Normal limit 0 Total 6 I personally scribed for JUAN M KENDRICK MD ([email or web address]) on 05/31/24 at 11:51. Electronically submitted by Greg Vinson ([email or web address]). I personally scribed for JUAN M KENDRICK MD ([email or web address]) on 05/31/24 at 16:58. Electronically submitted by Greg Vinson ([email or web address]). JUAN M KENDRICK MD May 31, 2024 11:51
--- NOTE | 2024-05-31 12:26 | DVH ---
CHEST RADIOGRAPH Indication: sob Technique: Single frontal view of the chest was obtained Comparison: XY CHEST XRAY 1 VIEW on DOS: 06/06/23 FINDINGS: Lines and Tubes: None Lungs: Bilateral interstitial prominence. No focal consolidation. Pleura: No effusion. No pneumothorax. Cardiomediastinal contours: Unremarkable Bones: No acute osseous abnormality. IMPRESSION: 1. Bilateral interstitial prominence which may reflect chronic congestion or interstitial lung diseas e.
[2024-05-31] MEDS: MAGNESIUM SULFATE 1GM/100ML 100 ML IV ONE (12:39)
[2024-05-31 12:57] VITALS: PULSE 126; RESP 18; O2SAT 92
[2024-05-31] MEDS: AMIODARONE BOLUS KIT 100 ML IV ONE (13:04)
[2024-05-31] MEDS: AMIODARONE 450mg/250ml AE 250 ML IV SCH ×2 (14:20→20:20)
[2024-05-31 21:43] LABS: Urine Bacteria MOD /hpf (None Seen); Urine Blood 2+ /uL (Negative); Urine Budding Yeast MODERATE /hpf (None Seen); Urine Clarity Ex.Turbid (Clear); Urine Color Light-Orange (Yellow); Urine Hyaline Cast FEW /lpf (0 - 2); Urine Mucus FEW (None Seen); Urine Protein, UAD TRACE (Negative); Urine Specific Gravity 1.018 (1.001-1.035); Urine Squamous Epithelial Cell FEW /hpf (<5); Urine Urobilinogen Normal (Negative); Urine WBC 606 /hpf (0 - 3); Urine pH 5.5 (5.0-9.0)
--- NOTE | 2024-05-31 22:12 | DVHHPRES ---
History of Present Illness Resident Creating Document: ROSALBA REDD RESIDENT History of Present Illness This is a 89 year old male with past medical history of COPD, CHF, atrial fibrillation,, CAD, prediabetes brought in ED via EMS with a chief complaint of shortness of breath and productive cough for 2 days prior to this admission. Per EMS the patient was found in home with desaturating and also heart rate was irregular in between 120-140. The patient states that shortness of breath started 2 days ago, aggravated by exertion without any relieving factors and associated with productive cough with whitish sputum. The patient has been on home oxygen and use whenever needed. He also mentioned history of septic shock status post intubation and extubation last years after following pneumonia. He denies fever, flu-like symptoms, sick contact, chest pain, dizziness, diaphoresis, abdominal pain, nausea, vomiting or any change in bowel and bladder habit. Past Medical History COPD, CHF, atrial fibrillation,, CAD, prediabetes Past Surgical History None Family History None Past Social History Lives with Stepson Nonsmoker, couple of beers every day and never tried any other drugs Review of Systems Constitutional: No: Fever, Chills, Sweats, Weakness, Malaise, Other Eyes: No: Pain, Vision change, Conjunctivae inflammation, Eyelid inflammation, Other, Redness ENT: No: Ear pain, Ear discharge, Nose pain, Nose discharge, Nose congestion, Mouth pain, Mouth swelling, Throat pain, Throat swelling, Other Respiratory: Cough, Shortness of breath, SOB with excertion, Wheezing, Sputum Cardiovascular: No: Chest Pain, Palpitations, Orthopnea, Paroxysmal Noc. Dyspnea, Edema, Lt Headedness, Other Gastrointestinal: Abdominal Pain; No: Nausea, Vomiting, Diarrhea, Constipation, Melena, Hematochezia, Other Genitourinary: Dysuria, Frequency; No Incontinence, No Hematuria, No Retention, No Other Musculoskeletal: No: other, neck pain, shoulder pain, arm pain, back pain, hand pain, leg pain, foot pain Skin: No: Rash, Lesions, Jaundice, Bruising, Other Neurological: No: Weakness, Numbness, Incoordination, Change in speech, Confusion, Seizures, Other Allergies: Coded Allergies: NO KNOWN ALLERGIES (Unverified , 05/28/23) Medications Current Medications Medications Dose Ordered Sig/Xavi Route Start Time Stop Time Status Last Admin Dose Admin Amiodarone HCl 250 ml @ 16.667 mls/ hr Q15H IV 06/01/24 02:30 05/31/24 20:20 16.667 MLS/HR Nitroglycerin 0.4 mg Q5MINP PRN SL 05/31/24 22:15 UNV Morphine Sulfate 2 mg Q30M PRN IV 05/31/24 22:15 UNV Methylprednisolone Sodium Succinate 40 mg BID IV 06/01/24 10:00 UNV Azithromycin 250 ml @ 125 mls/hr COUMADIN IV 06/01/24 17:00 UNV Albuterol 2.5 mg Q4HR NEB 06/01/24 02:00 UNV Ipratropium [place] 0.5 mg Q4HR NEB 06/01/24 02:00 UNV Exam Vital Signs Vital Signs Date Time Temp Pulse Resp B/P (MAP) Pulse Ox O2 Delivery O2 Flow Rate FiO2 05/31/24 21:30 22 95 Nasal Cannula* 2 28 05/31/24 20:00 98.1 80 106/59 (75) 98.1 Exam Physical examination: General Appearance: Alert, Oriented X3, Cooperative, mild distress HEENT: Atraumatic, PERRLA, EOMI, Mucous membrane moist/pink Respiratory: Bilateral wheezing and crackles. Cardiovascular: Regular rate, Normal S1, Normal S2, No murmurs, no chest wall tenderness Abdominal: Normal bowel sounds, Soft, No tenderness, No hepatospenomegaly, No masses Extremities: No clubbing, No cyanosis, No edema, Normal pulses, No tenderness/swelling Skin: No rashes, No breakdown, No significant lesion Neuro: Normal speech, Strength at 5/5 X4 ext, Normal tone, Sensation intact, grossly intact cranial nerves Psych/Mental Status: Mental status NL, Mood NL Labs/Xrays Labs Test 05/31/24 22:00 05/31/24 21:05 05/31/24 11:07 Range/Units Urine Color Light-orange Yellow Urine Clarity Ex.turbid Clear Urine pH 5.5 5.0-9.0 Urine Specific [place] 1.018 1.001-1.035 Urine Protein Trace H Negative Urine Ketones Trace Negative Urine Blood 2+ H Negative /uL Urine Nitrite Negative Negative Urine Bilirubin Negative Negative Urine Urobilinogen Normal Negative mg/dL Urine Leukocyte Esterase 3+ Negative /uL Urine RBC 118 0 - 3 /hpf Urine WBC 606 0 - 3 /hpf Urine Squamous Epithelial Cells Few <5 /hpf Urine Bacteria Mod H None Seen /hpf Urine Hyaline Casts Few 0 - 2 /lpf Urine Mucus Few None Seen Urine Yeast (Budding) Moderate None Seen /hpf Urine Glucose 3+ H Normal mg/dL White Blood Count 8.4 4.4-10.8 10^3/uL Red Blood Count 4.78 4.5-5.90 10^6/uL Hemoglobin 14.9 13.5-17.5 g/dL Hematocrit 44.6 41.0-53.0 % Mean Corpuscular Volume 93.2 80.0-100.0 fL Mean Corpuscular Hemoglobin 31.2 28.0-32.0 pg Mean Corpuscular Hemoglobin Concent 33.5 32.0-36.0 g/dL Red Cell Distribution Width 15.5 H 11.8-14.3 % Platelet Count 191 140-450 10^3/uL Mean Platelet Volume 8.3 6.9-10.8 fL Neutrophils (%) (Auto) 71.4 37.0-80.0 % Lymphocytes (%) (Auto) 11.8 10.0-50.0 % Monocytes (%) (Auto) 15.9 H 0.0-12.0 % Eosinophils (%) (Auto) 0.2 0.0-7.0 % Basophils (%) (Auto) 0.7 0.0-2.0 % Neutrophils # (Auto) 6.0 1.6-8.6 10 ^3/uL Lymphocytes # (Auto) 1.0 0.4-5.4 10 ^3/uL Monocytes # (Auto) 1.3 0-1.3 10 ^3/uL Eosinophils # (Auto) 0 0-0.8 10 ^3/uL Basophils # (Auto) 0.1 0-0.2 10 ^3/uL Nucleated Red Blood Cells 0.2 % Sodium Level 136 136-145 mmol/L Potassium Level 4.4 3.5-5.1 mmol/L Chloride Level 104 98-107 mmol/L Carbon Dioxide Level 24 20-31 mmol/L Anion Gap 8 5-15 Blood Urea Nitrogen 14 9-23 mg/dL Creatinine 1.00 0.700-1.30 mg/dL Glomerular Filtration Rate Calc 72 >90 mL/min BUN/Creatinine Ratio 14.0 10.0-20.0 Serum Glucose 93 74-106 mg/dL Calcium Level 9.4 8.7-10.4 mg/dL Troponin I High Sensitivity 4 </=54 ng/L Assessment/Plan Assessment/Plan Assessment and plan: # Acute on chronic respiratory failure due to acute exacerbation of COPD - Patient is on 2 L oxygen with saturation 97% # Acute exacerbation of chronic COPD - Covid, Flu negative - Chest xray revealed bilateral interstitial prominence which may reflect chronic congestion or interstitial lung disease. - Duoneb with ipratropium and albuterol q.4 hours - IV methylprednisolone 40 mg b.i.d. - IV azithromycin 500 mg daily # Possible exacerbation of chronic diastolic heart failure - Elevated BNP - Chest xray revealed bilateral interstitial prominence which may reflect chronic congestion or interstitial lung disease. - Hold Lasix due to blood pressure is on the lower side - Echo on 05/28/2023 revealed ejection fraction 50% with grade 1 diastolic dysfunction - Ordered echo # Atrial fibrillation with RVR with secondary hypercoagulable state - Patient was on amio drip per protocol - Discontinued amio drip as the heart rate was in 60s and blood pressure was on the lower side - Started oral amiodarone 200 mg p.o. b.i.d. - Continue Pradaxa 110 mg p.o. daily # Acute cystitis - U/A is consistent with UTI - Ordered urine bacterial culture - IV ceftriaxone 1 g daily # PUD - Pepcid 20 mg p.o. daily # DVT prophylaxis - Patient is on Pradaxa Care discussed with the patient for more than 20 minutes full code Plan of treatment discussed with Dr. Jhaveri Plan discussed with: Patient, Other My Orders Orders - ROSALBA REDD RESIDENT Procedure Category Date Status Time Admit ADMIT 05/31/24 Transmitted 22:06 Nitroglycerin PHA 05/31/24 Transmitted Sublingual (Ntrostat 22:15 Morphine Sulfate PHA 05/31/24 Transmitted Injection 22:15 Oxygen By Nasal RT 05/31/24 Transmitted Cannula 22:06 [employer] [facility] 05/31/24 Transmitted 24 Hours 22:06 Methylprednisolone PHA 06/01/24 Transmitted Sod Succ (Solu Medrol 10:00 Azithromycin 500mg/ PHA 05/31/24 Transmitted 250ml (Zithromax 50 22:15 Azithromycin 500mg/ PHA 06/01/24 Transmitted 250ml (Zithromax 50 17:00 Albuterol Medneb PHA 06/01/24 Transmitted (Ventolin Medneb) 02:00 Ipratropium Medneb PHA 06/01/24 Transmitted (Atrovent Medneb) 02:00 Date of Service: May 31, 2024 Billing Provider: NICOLE JHAVERI MD Common Visit Codes: [id number] INP/OBS CARE (HIGH) Secondary Visit Codes: 30715-[id number] CARE PLAN 30 MINUTES ROSALBA REDD RESIDENT May 31, 2024 22:12 NICOLE JHAVERI MD Jun 02, 2024 10:45
[2024-05-31] MEDS ORDERED: MORPHINE SULFATE INJ 2 MG/ml SYRG IV PRN (22:15)
[2024-05-31] MEDS ORDERED: NITROGLYCERIN 0.4 MG SL TAB SL PRN (22:15)
[2024-05-31 22:30] LABS: Rapid Influenza A Negative (Negative); Rapid Influenza B Negative (Negative)
[2024-05-31] MEDS: AZITHROMYCIN 500MG/ 250ML 250 ML IV ONE (22:49)
[2024-05-31 23:02] VITALS: PULSE 79; RESP 22; O2SAT 92
[2024-05-31 23:30] VITALS: BP 95/55; PULSE 77; RESP 16; O2SAT 98
[2024-06-01] VITALS (16 sets, daily range): BP systolic 144; BP diastolic 78; PULSE 88–120; RESP 16–24; TEMP 98.1; O2SAT 94–100
[2024-06-01 00:13] LABS: INR 1.33 (0.9-1.15); Prothrombin Time 13.8 sec (9.3-11.8)
[2024-06-01 01:09] LABS: COVID19 ANTIGEN SOFIA FIA NEGATIVE (NEGATIVE)
[2024-06-01] MEDS: methylPREDNISolone SOD SUCC 40 MG/ML VL IV ONE (01:10)
[2024-06-01] MEDS: ALBUTEROL SULF 2.5 MG/0.5ML(0.5%) NEB SOLN NEB SCH (01:13)
[2024-06-01] MEDS: IPRATROPIUM BROM 0.5 MG/2.5ML INH SOL NEB SCH (01:13)
--- NOTE | 2024-06-01 07:05 | ECG ---
[facility] Test Date: 2024-06-01 Test Time: 00:47:28 Pat Name: ILENE CHAMBERS Department: ED Room: [address] [place] [address] Gender: M War[employer] Hauler: MINDY : 1935 Requested By: ROSALBA REDD Order Number: [id number] Reading MD: Janie Sloan Measurements Intervals [place] Rate: 62 P: 0 MA: 0 QRS: 76 QRSD: 78 T: 76 QT: 425 QTc: 432 Interpretive Statements Atrial fibrillation Baseline wander in lead(s) V6 Electronically Signed On 06-01-2024 9:02:13 PST by Janie Sloan Please click the below link to view image of tracing.
[2024-06-01] MEDS: DABIGATRAN 75 MG CAP PO SCH (10:00)
[2024-06-01] MEDS: cefTRIAXone 1GM/50ML D5W 50 ML IV SCH (10:38)
[2024-06-01] MEDS: methylPREDNISolone SOD SUCC 40 MG/ML VL IV SCH (10:38)
[2024-06-01] MEDS: AMIODARONE HCL 200 MG TAB PO SCH (10:38)
[2024-06-01] MEDS: FAMOTIDINE 20 MG TAB PO SCH (10:38)
[2024-06-01 10:39] LABS: Basophils # (auto) 0 10 ^3/uL (0-0.2); Basophils % (auto) 0.1 % (0.0-2.0); Eosinophils # (auto) 0 10 ^3/uL (0-0.8); Hematocrit 42.2 % (41.0-53.0); Lymphocytes # (auto) 0.4 10 ^3/uL (0.4-5.4); Mean Corpuscular Hemoglobin 30.6 pg (28.0-32.0); Mean Corpuscular Hgb Conc. 33.2 g/dL (32.0-36.0); Mean Corpuscular Volume 92.1 fL (80.0-100.0); Monocytes # (auto) 0.4 10 ^3/uL (0-1.3); Monocytes % (auto) 5.8 % (0.0-12.0); Neutrophils # (auto) 6.5 10 ^3/uL (1.6-8.6); Neutrophils % (auto) 88.1 % (37.0-80.0); Nucleated Red Blood Cells % 0.1 %; Platelet Count (auto) 179 10^3/uL (140-450); Red Blood Cells 4.58 10^6/uL (4.5-5.90); Red Cell Distribution Width 15.6 % (11.8-14.3); White Blood Cell 7.4 10^3/uL (4.4-10.8)
[2024-06-01 10:55] LABS: Anion Gap 6 (5-15); Carbon Dioxide 26 mmol/L (20-31); Chloride 106 mmol/L (98-107); Potassium 4.1 mmol/L (3.5-5.1); Sodium 138 mmol/L (136-145)
[2024-06-01 10:57] LABS: Calcium 9.5 mg/dL (8.7-10.4)
[2024-06-01 11:02] LABS: BUN/Creatinine Ratio 23.8 (10.0-20.0)
[2024-06-01 11:14] LABS: Blood Urea Nitrogen 24 mg/dL (9-23); Glucose 148 mg/dL (74-106)
[2024-06-01] MEDS: SODIUM CHLORIDE 0.9% 500 ML IV ONE (11:30)
[2024-06-01] MEDS: AZITHROMYCIN 500MG/ 250ML 250 ML IV SCH (17:00)
--- NOTE | 2024-06-01 18:39 | DVHPNRES ---
Progress Note Date Seen: Jun 01, 2024 Resident Creating Document: VASYL JOEL RESIDENT Medical Necessity Reason Pt with a Central, PICC or Fol: No Subjective Review of Systems Patient is 89 years old male with past medical history of atrial fibrillation, COPD, congestive heart failure, CAD, prediabetes brought into the hospital by EMS due to shortness of breath and productive cough. As per patient patient has been having productive cough whitish sputum for last 2 days. Patient also reported shortness of breaths especially with the exertion. Patient was found to have heart rate of 120-140 by EMS at home. NC O2 at home as needed. Denies chest pain, acute fever, acute joint pain or swelling, any sick contact. Initial lab workup revealed elevated BNP 7, urinalysis revealed leukocyte esterase 3+, WBC 606, WBC 118, bacteria moderate high, uterine yeast moderate. Patient tested negative for COVID-19 and influenza type A and B. INR 1.33 Bilateral interstitial prominence which may reflect chronic congestion or interstitial lung disease. EKG atrial fibrillation -Past Medical Histor-COPD, CHF, atrial fibrillation,, CAD, prediabetes Past Surgical History-None Family History-None Past Social History-Lives with Stepson, Nonsmoker, couple of beers every day and never tried any other drugs Allergy- NKDA Patient was seen today at the bedside. Cardiovascular- deny acute chest pain Gastrointestinal- denies any rectal bleeding, nausea or vomiting Musculoskeletal-denies acute joint swelling or tenderness or redness Neurological- denies acute dysarthria, dysphagia, change in vision Psychiatry- denies depression or SI or HI Skin- denies acute rash or purpura Patient was seen today for clinical evaluation. Labs and chart reviewed. Patient is unable to complete a full sentence due to respiratory distress, patient on NC O2 to keep SpO2> 90%, on antibiotic ceftriaxone azithromycin to help with a secondary bacterial infection likely underlying cause for exacerbation of COPD. Patient is not clinically stable to be transferred to [place]. Objective vital signs Vital Sign Date Time Temp Pulse Resp B/P (MAP) Pulse Ox O2 Delivery O2 Flow Rate FiO2 06/01/24 18:00 112 20 133/85 (101) 96 06/01/24 10:10 Nasal Cannula* 2 28 06/01/24 07:00 97.9 97.9 Total Intake and Output 12/29/24 12/29/24 12/30/24 15:00 23:00 07:00 Intake Total 200 ml 100.000 ml 283.334 ml Output Total 200 ml Balance 200 ml -100.000 ml 283.334 ml medications Current Medications Medications Dose Ordered Sig/Xavi Route Start Time Stop Time Status Last Admin Dose Admin Nitroglycerin 0.4 mg Q5MINP PRN SL 05/31/24 22:15 Morphine Sulfate 2 mg Q30M PRN IV 05/31/24 22:15 Methylprednisolone Sodium Succinate 40 mg BID IV 06/01/24 10:00 06/01/24 10:38 40 MG Azithromycin 250 ml @ 125 mls/hr COUMADIN IV 06/01/24 17:00 06/01/24 17:00 125 MLS/HR Albuterol 2.5 mg Q4HR NEB 06/01/24 02:00 06/01/24 14:37 2.5 MG Ipratropium [place] 0.5 mg Q4HR NEB 06/01/24 02:00 06/01/24 14:37 0.5 MG Ceftriaxone Sodium 50 ml @ 100 mls/hr DAILY IV 06/01/24 10:00 06/01/24 10:38 100 MLS/HR Amiodarone HCl 200 mg Q12HR PO 06/01/24 10:00 06/01/24 10:38 200 MG Famotidine 20 mg DAILY PO 06/01/24 10:00 06/01/24 10:38 20 MG Patient Own Medication 1 DAILY PO 06/02/24 10:00 Examination General examination- , alert, oriented, conversant HEENT- PEERLA, no acute nasal discharge Cardiovascular- S1-S2 audible, rate and rhythm regular, no murmur Respiratory- bilateral wheezing++, crackles+ Gastrointestinal-nontender, bowel sound+. Nondistended Musculoskeletal-no acute joint swelling or tenderness or redness# Neurological- cranial nerves intact, no acute dysarthria or dysphagia Psychiatry- denies depression or SI or HI Skin- no acute rash or purpura laboratory and microbiology Laboratory Tests 06/01/24 10:04 Test 06/01/24 10:04 Range/Units Serum Glucose 148 H 74-106 mg/dL Problem List/Assessment/Plan Problem List/Assessment/Plan # Acute on chronic respiratory failure due to acute exacerbation of COPD # Acute exacerbation of chronic COPD # Possible exacerbation of chronic diastolic heart failure # Atrial fibrillation with RVR with secondary hypercoagulable state # Acute cystitis # PUD # DVT prophylaxis elevated BNP 7, urinalysis revealed leukocyte esterase 3+, WBC 606, WBC 118, bacteria moderate high, uterine yeast moderate. Patient tested negative for COVID-19 and influenza type A and B. INR 1.33 EKG atrial fibrillation Continue ceftriaxone 1 g IV daily Continue azithromycin 500 mg IV daily Continue nebulization as prescribed Continue methylprednisolone 40 mg IV b.i.d. Continue amiodarone 200 mg p.o. q.12 hours Continue Lovenox 60 mg subcutaneously be Patient is unable to complete a full sentence due to respiratory distress, patient on [place] O2 to keep SpO2> 90%. Patient is clinically unstable to be transferred to [place]. Goals of care/advance care planning; FULL CODE; discussed with the patient >15 minutes PUD prophylaxis: Famotidine DVT prophylaxis: Lovenox Plan discussed with James Trejo, nursing staff, patient Total time spent on patient evaluation, chart review, assessment and plan, discussion discussion >30 minutes Plan discussed with: Patient Plan discussed with: Patient, Other (RN) My Orders My Orders Orders - VASYL JOEL Procedure Category Date Status Time Stool Bacterial MYRA 06/01/24 Logged Culture 16:10 Stool Wbc LAB 06/01/24 Logged 16:10 Stool Occult Blood LAB 06/01/24 Logged 16:10 Clostridium Difficile MYRA 06/01/24 Logged Toxin 16:10 Date of Service: Jun 01, 2024 Billing Provider: TJ PERRIN MD Common Visit Codes: [id number] INP/OBS CARE(HIGH) VASYL JOEL Jun 01, 2024 18:39 TJ PERRIN MD Jun 02, 2024 14:16
[2024-06-01] MEDS: ENOXAPARIN SOD 60 MG/0.6 ML SYRINGE SC ONE (18:58)
[2024-06-01] MEDS: ENOXAPARIN SOD 60 MG/0.6 ML SYRINGE SC SCH (22:29)
[2024-06-02] VITALS (21 sets, daily range): BP systolic 112–151; BP diastolic 70–101; PULSE 101–127; RESP 14–20; TEMP 97.7–97.9; O2SAT 93–100
[2024-06-02 07:50] LABS: Basophils # (auto) 0 10 ^3/uL (0-0.2); Eosinophils # (auto) 0 10 ^3/uL (0-0.8); Hematocrit 42.5 % (41.0-53.0); Lymphocytes # (auto) 0.4 10 ^3/uL (0.4-5.4); Lymphocytes % (auto) 3.4 % (10.0-50.0); Mean Corpuscular Hemoglobin 30.6 pg (28.0-32.0); Mean Corpuscular Volume 92.8 fL (80.0-100.0); Monocytes # (auto) 0.7 10 ^3/uL (0-1.3); Neutrophils # (auto) 12.1 10 ^3/uL (1.6-8.6); Neutrophils % (auto) 91.6 % (37.0-80.0); Platelet Count (auto) 179 10^3/uL (140-450); Red Blood Cells 4.58 10^6/uL (4.5-5.90); Red Cell Distribution Width 15.5 % (11.8-14.3); White Blood Cell 13.2 10^3/uL (4.4-10.8)
[2024-06-02 08:02] LABS: Calcium 9.3 mg/dL (8.7-10.4); Chloride 107 mmol/L (98-107); Potassium 4.2 mmol/L (3.5-5.1); Sodium 139 mmol/L (136-145)
[2024-06-02 08:03] LABS: Anion Gap 7 (5-15); Carbon Dioxide 25 mmol/L (20-31)
[2024-06-02 08:09] LABS: Magnesium 2.1 mg/dL (1.6-2.6)
[2024-06-02 08:10] LABS: Blood Urea Nitrogen 25 mg/dL (9-23); Glucose 142 mg/dL (74-106)
--- NOTE | 2024-06-02 13:36 | DVHSR ---
APPROVED REPORT EXAM: LIMITED Two-dimensional and M-mode echocardiogram with Doppler and color Doppler. Blood Pressure: 130/87 mmHg INDICATION shortness of breath RISK FACTORS Height: 5'5, Weight: 143 DIMENSIONS LVDd3.5 (3.8-5.7cm)LA (2D)4.3 (1.9-4.0cm)Aortic Root3.2 (2.0-3.7cm) LVDs2.4 (2.5-4.0cm)LA (MM) (1.9-4.0cm)Aortic Cusp Exc0.9 (1.5-2.0cm) EF (%) 60.0 (55-70%)Rt. Atrium4.9 (1.9-4.0cm)Asc. Aorta cm IVSd0.8 (0.7-1.1cm)RV (D) (1.8-2.4cm) PWd1.1 (0.7-1.1cm) Mitral Valve MitralMitral Stenosis E wave1.03m/sMV Mean GR.2mmHg A wavem/sMV Peak GR.53mmHg E/A ratio0.02D MVAcm2 DECEL [id number] 1/2 Timems Aortic Valve Aortic ValveAortic Stenosis V11.00m/Dwayne Mean GR.3mmHg V21.15m/Dwayne Peak GR.5mmHg LVOT Diameter1.9 (1.8-2.4cm)Doppler AVA2.46cm2 Tricuspid Valve TR Velocity2.56m/s [id number] LEFT VENTRICLE The left ventricle is of normal size. Wall thickness is normal. Ejection fraction is normal and is estimated at 60%. There is no regional wall motion abnormalities. There is grade diastolic dysfunct ion. RIGHT VENTRICLE The right ventricle is of normal size and systolic function. ATRIA There is moderate biatrial enlargement. MITRAL VALVE There is mild mitral annular calcification. There is no significant mitral regurgitation. PULMONIC VALVE Not well visualized. TRICUSPID VALVE Normal structure and function. There is trace tricuspid regurgitation. PA systolic pressure is estim ated at 45-50 mm Hg. AORTIC VALVE Aortic valve leaflets are sclerotic. No significant stenosis or regurgitation. GREAT VESSELS Not well visualized. PERICARDIAL EFFUSION No significant effusion. IVC is dilated in size. Other Information Quality : Technically LimitedRhythm : Technically limited study due to body habitus.patient position. Conclusion The study is technically difficult. The left ventricle is of normal size and systolic function. Ejection fraction is estimated at 60%. The right ventricle is of normal size and systolic function. Sclerotic aortic valve with no significant stenosis. Mild mitral annular calcification. Grade II diastolic dysfunction. Moderate biatrial enlargement. PA systolic pressure is estimated at 45-50 mm Hg.
--- NOTE | 2024-06-02 15:46 | DVHPNRES ---
Progress Note Date Seen: Jun 02, 2024 Resident Creating Document: VASYL JOEL RESIDENT Medical Necessity Reason Pt with a Central, PICC or Fol: No Subjective Review of Systems Patient is 89 years old male with past medical history of atrial fibrillation, COPD, congestive heart failure, CAD, prediabetes brought into the hospital by EMS due to shortness of breath and productive cough. As per patient patient has been having productive cough whitish sputum for last 2 days. Patient also reported shortness of breaths especially with the exertion. Patient was found to have heart rate of 120-140 by EMS at home. NC O2 at home as needed. Denies chest pain, acute fever, acute joint pain or swelling, any sick contact. Initial lab workup revealed elevated BNP 7, urinalysis revealed leukocyte esterase 3+, WBC 606, WBC 118, bacteria moderate high, uterine yeast moderate. Patient tested negative for COVID-19 and influenza type A and B. INR 1.33 Bilateral interstitial prominence which may reflect chronic congestion or interstitial lung disease. EKG atrial fibrillation -Past Medical Histor-COPD, CHF, atrial fibrillation,, CAD, prediabetes Past Surgical History-None Family History-None Past Social History-Lives with [place], Nonsmoker, couple of beers every day and never tried any other drugs Allergy- NKDA Patient was seen today at the bedside. Cardiovascular- deny acute chest pain Gastrointestinal- denies any rectal bleeding, nausea or vomiting Musculoskeletal-denies acute joint swelling or tenderness or redness Neurological- denies acute dysarthria, dysphagia, change in vision Psychiatry- denies depression or SI or HI Skin- denies acute rash or purpura Patient was seen today for clinical evaluation. Labs and chart reviewed. Patient's respiratory distress improved. Patient's WBC is elevated likely stress induced. Social service consult for transfer patient to [place] is in place Objective vital signs Vital Sign Date Time Temp Pulse Resp B/P (MAP) Pulse Ox O2 Delivery O2 Flow Rate FiO2 06/02/24 14:03 101 18 98 06/02/24 13:53 Nasal Cannula 2.0 06/02/24 13:53 28 06/02/24 13:00 97.8 134/84 (101) 97.8 Total Intake and Output 06/01/24 06/01/24 06/02/24 15:00 23:00 07:00 Intake Total 550 ml 250 ml 250 ml Output Total 600 ml 140 ml 200 ml Balance -50 ml 110 ml 50 ml medications Current Medications Medications Dose Ordered Sig/Xavi Route Start Time Stop Time Status Last Admin Dose Admin Nitroglycerin 0.4 mg Q5MINP PRN SL 05/31/24 22:15 Morphine Sulfate 2 mg Q30M PRN IV 05/31/24 22:15 Methylprednisolone Sodium Succinate 40 mg BID IV 06/01/24 10:00 06/02/24 11:36 40 MG Azithromycin 250 ml @ 125 mls/hr COUMADIN IV 06/01/24 17:00 06/01/24 17:00 125 MLS/HR Albuterol 2.5 mg Q4HR NEB 06/01/24 02:00 06/02/24 13:53 2.5 MG Ipratropium Angelica 0.5 mg Q4HR NEB 06/01/24 02:00 06/02/24 13:53 0.5 MG Ceftriaxone Sodium 50 ml @ 100 mls/hr DAILY IV 06/01/24 10:00 06/02/24 11:34 100 MLS/HR Amiodarone HCl 200 mg Q12HR PO 06/01/24 10:00 06/02/24 10:17 200 MG Famotidine 20 mg DAILY PO 06/01/24 10:00 06/02/24 10:17 20 MG Patient Own Medication 1 DAILY PO 06/02/24 10:00 Enoxaparin Sodium 60 mg Q12HR SC 06/01/24 22:00 06/02/24 10:17 60 MG Examination General examination- , alert, oriented, conversant HEENT- PEERLA, no acute nasal discharge Cardiovascular- S1-S2 audible, rate and rhythm regular, no murmur Respiratory- bilateral wheezing++ Gastrointestinal-nontender, bowel sound+. Nondistended Musculoskeletal-no acute joint swelling or tenderness or redness# Neurological- cranial nerves intact, no acute dysarthria or dysphagia Psychiatry- denies depression or SI or HI Skin- no acute rash or purpura laboratory and microbiology Laboratory Tests 06/02/24 06:28 Test 06/02/24 06:28 Range/Units Serum Glucose 142 H 74-106 mg/dL Microbiology Date/Time Source Procedure Growth Status 06/01/24 16:10 Stool Received 05/31/24 21:05 Voided Urine Urine Culture - Preliminary Resulted Problem List/Assessment/Plan Problem List/Assessment/Plan # Acute on chronic respiratory failure due to acute exacerbation of COPD # Acute exacerbation of chronic COPD # Possible exacerbation of chronic diastolic heart failure # Atrial fibrillation with RVR with secondary hypercoagulable state # Acute cystitis # PUD # DVT prophylaxis elevated BNP 7, urinalysis revealed leukocyte esterase 3+, WBC 606, WBC 118, bacteria moderate high, uterine yeast moderate. Patient tested negative for COVID-19 and influenza type A and B. INR 1.33 EKG atrial fibrillation Continue ceftriaxone 1 g IV daily Continue azithromycin 500 mg IV daily Continue nebulization as prescribed Continue methylprednisolone 40 mg IV b.i.d. Continue amiodarone 200 mg p.o. q.12 hours Continue Lovenox 60 mg subcutaneously be Goals of care/advance care planning; FULL CODE; discussed with the patient >15 minutes PUD prophylaxis: Famotidine DVT prophylaxis: Lovenox Plan discussed with Dr. King , nursing staff, patient Total time spent on patient evaluation, chart review, assessment and plan, discussion discussion >30 minutes Plan discussed with: Patient Plan discussed with: Patient, Other (RN) My Orders My Orders Orders - VASYL JOEL Procedure Category Date Status Time Stool Bacterial MYRA 06/01/24 In Process Culture 16:10 Enoxaparin Sodium PHA 06/01/24 In Process (Lovenox) 22:00 Echo 2d Mode Cardiac US 06/02/24 Resulted DOP 18:32 * Commercial Manager CONS 06/02/24 Transmitted Consult Discharge DISCHARGE 06/02/24 Transmitted 13:20 Date of Service: Jun 03, 2024 Billing Provider: NEENA KING MD Common Visit Codes: [id number] INP/OBS CARE(HIGH) Date of Service: Jun 02, 2024 Billing Provider: TJ PERRIN MD Common Visit Codes: [id number] INP/OBS CARE(HIGH) VASYL JOEL Jun 02, 2024 15:46 NEENA KING MD Jun 03, 2024 19:50 TJ PERRIN MD Jun 05, 2024 08:45
[2024-06-02] MEDS: AZITHROMYCIN 500MG/ 250ML 250 ML IV SCH (17:33)
[2024-06-03] VITALS (19 sets, daily range): BP systolic 112–153; BP diastolic 74–98; PULSE 44–126; RESP 16–21; TEMP 97.3–98.4; O2SAT 92–99
[2024-06-03 09:39] LABS: Potassium 4.4 mmol/L (3.5-5.1); Sodium 142 mmol/L (136-145)
[2024-06-03 09:40] LABS: Anion Gap 5 (5-15); Calcium 9.2 mg/dL (8.7-10.4); Carbon Dioxide 28 mmol/L (20-31)
[2024-06-03 09:41] LABS: Chloride 109 mmol/L (98-107)
[2024-06-03 09:45] LABS: BUN/Creatinine Ratio 23.6 (10.0-20.0)
[2024-06-03 09:46] LABS: Magnesium 2.1 mg/dL (1.6-2.6)
[2024-06-03 10:21] LABS: Blood Urea Nitrogen 25 mg/dL (9-23); Glucose 167 mg/dL (74-106)
[2024-06-03 10:32] LABS: Basophils # (auto) 0 10 ^3/uL (0-0.2); Eosinophils # (auto) 0 10 ^3/uL (0-0.8); Hemoglobin 14.5 g/dL (13.5-17.5); Lymphocytes # (auto) 0.5 10 ^3/uL (0.4-5.4); Lymphocytes % (auto) 6.1 % (10.0-50.0); Mean Corpuscular Hgb Conc. 33.8 g/dL (32.0-36.0); Mean Corpuscular Volume 91.8 fL (80.0-100.0); Monocytes # (auto) 0.6 10 ^3/uL (0-1.3); Monocytes % (auto) 7.5 % (0.0-12.0); Neutrophils # (auto) 6.4 10 ^3/uL (1.6-8.6); Neutrophils % (auto) 86.4 % (37.0-80.0); Nucleated Red Blood Cells % 0.1 %; Platelet Count (auto) 173 10^3/uL (140-450); Red Blood Cells 4.68 10^6/uL (4.5-5.90); Red Cell Distribution Width 15.5 % (11.8-14.3); White Blood Cell 7.4 10^3/uL (4.4-10.8)
[2024-06-04] VITALS (13 sets, daily range): BP systolic 142–161; BP diastolic 83–93; PULSE 83–117; RESP 18–20; TEMP 97.7–98.3; O2SAT 93–100
[2024-06-04 05:12] LABS: Basophils # (auto) 0 10 ^3/uL (0-0.2); Eosinophils # (auto) 0 10 ^3/uL (0-0.8); Hematocrit 43.4 % (41.0-53.0); Hemoglobin 14.3 g/dL (13.5-17.5); Lymphocytes # (auto) 0.4 10 ^3/uL (0.4-5.4); Lymphocytes % (auto) 5.9 % (10.0-50.0); Mean Corpuscular Hemoglobin 30.6 pg (28.0-32.0); Mean Corpuscular Volume 92.8 fL (80.0-100.0); Monocytes # (auto) 0.4 10 ^3/uL (0-1.3); Monocytes % (auto) 6.6 % (0.0-12.0); Neutrophils # (auto) 5.6 10 ^3/uL (1.6-8.6); Neutrophils % (auto) 87.5 % (37.0-80.0); Platelet Count (auto) 162 10^3/uL (140-450); Red Blood Cells 4.68 10^6/uL (4.5-5.90); Red Cell Distribution Width 15.6 % (11.8-14.3); White Blood Cell 6.4 10^3/uL (4.4-10.8)
[2024-06-04 05:28] LABS: Anion Gap 6 (5-15); Carbon Dioxide 28 mmol/L (20-31); Potassium 4.8 mmol/L (3.5-5.1); Sodium 141 mmol/L (136-145)
[2024-06-04 05:30] LABS: Calcium 9.4 mg/dL (8.7-10.4)
[2024-06-04 05:34] LABS: BUN/Creatinine Ratio 27.2 (10.0-20.0)
[2024-06-04 05:35] LABS: Magnesium 2.1 mg/dL (1.6-2.6)
[2024-06-04 06:06] LABS: Blood Urea Nitrogen 25 mg/dL (9-23); Chloride 107 mmol/L (98-107); Glucose 142 mg/dL (74-106)
--- NOTE | 2024-06-04 17:08 | ECG ---
[facility] Test Date: 2024-05-31 Test Time: 10:40:35 Pat Name: ILENE CHAMBERS Department: er Room: [facility]5T B Gender: M [employer]ener [employer]ender: chika : 1935 Requested By: JUAN M KENDRICK Order Number: [id number] Reading MD: Bertin Oneill Measurements Intervals [place] Rate: 129 P: 0 AK: 0 QRS: 71 QRSD: 70 T: 49 QT: 280 QTc: 411 Interpretive Statements Atrial fibrillation ST depression, probably rate related Electronically Signed On 06-05-2024 12:06:23 PST by Bertin Oneill Please click the below link to view image of tracing.
[2024-06-04] MEDS ORDERED: LEVO500T91 PO (17:43)
[2024-06-04] MEDS ORDERED: PRED20TA2 PO (17:44)
--- NOTE | 2024-06-04 17:50 | DVHDSRES ---
Discharge Summary Date of Admission Resident Creating Document: VASYL JOEL RESIDENT May 31, 2024 at 22:06 Date of Discharge: Jun 02, 2024 Admitting Diagnosis Acute hypoxic respiratory failure Labs/Diagnostic Data: Laboratory Results Test 06/04/24 04:38 06/01/24 16:10 06/01/24 10:04 05/31/24 23:46 White Blood Count 6.4 10^3/uL (4.4-10.8) Red Blood Count 4.68 10^6/uL (4.5-5.90) Hemoglobin 14.3 g/dL (13.5-17.5) Hematocrit 43.4 % (41.0-53.0) Mean Corpuscular Volume 92.8 fL (80.0-100.0) Mean Corpuscular Hemoglobin 30.6 pg (28.0-32.0) Mean Corpuscular Hemoglobin Concent 33.0 g/dL (32.0-36.0) Red Cell Distribution Width 15.6 % (11.8-14.3) Platelet Count 162 10^3/uL (140-450) Mean Platelet Volume 8.4 fL (6.9-10.8) Neutrophils (%) (Auto) 87.5 % (37.0-80.0) Lymphocytes (%) (Auto) 5.9 % (10.0-50.0) Monocytes (%) (Auto) 6.6 % (0.0-12.0) Eosinophils (%) (Auto) 0.0 % (0.0-7.0) Basophils (%) (Auto) 0.0 % (0.0-2.0) Neutrophils # (Auto) 5.6 10 ^3/uL (1.6-8.6) Lymphocytes # (Auto) 0.4 10 ^3/uL (0.4-5.4) Monocytes # (Auto) 0.4 10 ^3/uL (0-1.3) Eosinophils # (Auto) 0 10 ^3/uL (0-0.8) Basophils # (Auto) 0 10 ^3/uL (0-0.2) Nucleated Red Blood Cells 0.0 % Sodium Level 141 mmol/L (136-145) Potassium Level 4.8 mmol/L (3.5-5.1) Chloride Level 107 mmol/L (98-107) Carbon Dioxide Level 28 mmol/L (20-31) Anion Gap 6 (5-15) Blood Urea Nitrogen 25 mg/dL (9-23) Creatinine 0.92 mg/dL (0.700-1.30) Glomerular Filtration Rate Calc 80 mL/min (>90) BUN/Creatinine Ratio 27.2 (10.0-20.0) Serum Glucose 142 mg/dL (74-106) Calcium Level 9.4 mg/dL (8.7-10.4) Magnesium Level 2.1 mg/dL (1.6-2.6) Stool Occult Blood Negative (Negative) Stool Occult Blood Sample #3 (Negative) Stool for White Cells None seen Hemoglobin A1c 5.8 % A1C (<5.7) Thyroid Stimulating Hormone (TSH) 0.78 uIU/mL (0.55-4.78) Prothrombin Time 13.8 sec (9.3-11.8) Prothrombin Time INR 1.33 (0.9-1.15) Activated Partial Thromboplast Time 43.0 SEC (24.5-34.5) Test 05/31/24 23:45 05/31/24 23:40 05/31/24 22:00 05/31/24 21:05 SARS-CoV-2 Antigen (Rapid) Negative (NEGATIVE) B-Type Natriuretic Peptide 397.29 pg/mL (0-100) Influenza Type A Antigen Negative (Negative) Influenza Type B Antigen Negative (Negative) Urine Color Light-orange (Yellow) Urine Clarity Ex.turbid (Clear) Urine pH 5.5 (5.0-9.0) Urine Specific [place] 1.018 (1.001-1.035) Urine Protein Trace (Negative) Urine Ketones Trace (Negative) Urine Blood 2+ /uL (Negative) Urine Nitrite Negative (Negative) Urine Bilirubin Negative (Negative) Urine Urobilinogen Normal mg/dL (Negative) Urine Leukocyte Esterase 3+ /uL (Negative) Urine RBC 118 /hpf (0 - 3) Urine WBC 606 /hpf (0 - 3) Urine Squamous Epithelial Cells Few /hpf (<5) Urine Bacteria Mod /hpf (None Seen) Urine Hyaline Casts Few /lpf (0 - 2) Urine Mucus Few (None Seen) Urine Yeast (Budding) Moderate /hpf (None Seen) Urine Glucose 3+ mg/dL (Normal) Test 05/31/24 11:07 Troponin I High Sensitivity 4 ng/L (</=54) Other Laboratory Tests 06/04/24 04:38 Brief Hx & Hospital Course: Patient is 89 years old male with past medical history of atrial fibrillation, COPD, congestive heart failure, CAD, prediabetes brought into the hospital by EMS due to shortness of breath and productive cough. As per patient patient has been having productive cough whitish sputum for last 2 days. Patient also reported shortness of breaths especially with the exertion. Patient was found to have heart rate of 120-140 by EMS at home. [place] O2 at home as needed. Denies chest pain, acute fever, acute joint pain or swelling, any sick contact. Initial lab workup revealed elevated BNP 7, urinalysis revealed leukocyte esterase 3+, WBC 606, WBC 118, bacteria moderate high, uterine yeast moderate. Patient tested negative for COVID-19 and influenza type A and B. INR 1.33 Bilateral interstitial prominence which may reflect chronic congestion or interstitial lung disease. EKG atrial fibrillation During hospitalization patient was treated conservatively with IV antibiotic/steroid/nebulization. Patient's symptoms improved gradually common patient was breathing well and has a better sleep as his respiratory distress got better. Patient reports feeling much better today and patient was adamant about going home. Patient was discharged with levofloxacin 500 mg p.o. daily for 5 days and also prednisolone to 40 mg p.o. daily for 5 days. Patient's meds were sent to the pharmacy electronically. Patient was advised to follow up with his primary care physician in 1 week. Patient was hemodynamically stable on discharge General examination- , alert, oriented, conversant HEENT- PEERLA, no acute nasal discharge Cardiovascular- S1-S2 audible, rate and rhythm regular, no murmur Respiratory- CTAB, no wheezing Gastrointestinal-nontender, bowel sound+. Nondistended Musculoskeletal-no acute joint swelling or tenderness or redness# Neurological- cranial nerves intact, no acute dysarthria or dysphagia Psychiatry- denies depression or SI or HI Skin- no acute rash or purpura Operations or Procedures DIAGNOSTIC IMAGING Diagnostic Imaging Report : [id number] Signed PATIENT: ILENE CHAMBERS ACCT: [id number] UNIT: [id number] : 1935 LOC: ER ROOM / BED: / AGE / SEX: 89 / M ADM STATUS: REG ER SERVICE 1054 ORDERING PHYSICIAN: JUAN M KENDRICK MD PROCEDURE(s): CXRP - CHEST PORTABLE REASON: sob ORDER NUMBER(s): [id number], ACCESSION NUMBER(s): [id number] CHEST RADIOGRAPH Indication: sob Technique: Single frontal view of the chest was obtained Comparison: XY CHEST XRAY 1 VIEW on DOS: 06/06/23 FINDINGS: Lines and Tubes: None Lungs: Bilateral interstitial prominence. No focal consolidation. Pleura: No effusion. No pneumothorax. Cardiomediastinal contours: Unremarkable Bones: No acute osseous abnormality. IMPRESSION: 1. Bilateral interstitial prominence which may reflect chronic congestion or interstitial lung disease. ATED BY: HARIKA FRANCIS MD DICTATED DATE/TIME: 05/31/241223 SIGNED BY: HARIKA FRANCIS MD SIGNED DATE/TIME: 05/31/241223 CC: Condition at Discharge: Stable Final Diagnosis/Problems List # Acute on chronic respiratory failure due to acute exacerbation of COPD # Acute exacerbation of chronic COPD # Possible exacerbation of chronic diastolic heart failure # Atrial fibrillation with RVR with secondary hypercoagulable state # Acute cystitis # PUD # DVT prophylaxis Discharge Disposition: Home Discharge Instruct/Medications Diet: Cardiac 2g Na,low cholest Activity: Light activity Follow Up/Referral: Please follow up with your primary care physician in 1 week Medications: Azithromycin 250 mg p.o. b.i.d. for 2days Prednisolone 40 mg p.o. for 5 days Discharge Statement: "Patient was advised to return to the ER or call 911 if any headaches, dizziness, shortness of breath, chest pain, abdominal pain, bleeding, fevers, or worsening of medical condition. Patient was counseled about treatment plan, medications, possible side effects, patientverbalized understanding. All questions were answered to the best of my ability. This discharge took greater then 30 minutes in planning, reviewing documentation, counseling the patient, and discussing with other team members." ASSESSMENT ASSESSMENT Assessment # Acute on chronic respiratory failure due to acute exacerbation of COPD # Acute exacerbation of chronic COPD # Possible exacerbation of chronic diastolic heart failure # Atrial fibrillation with RVR with secondary hypercoagulable state # Acute cystitis # PUD # DVT prophylaxis Date of Service: Jun 02, 2024 Billing Provider: TJ PERRIN MD Common Visit Codes: 53878-AHO/OBS DISCH DAY >30min VASYL JOEL RESIDENT Jun 04, 2024 17:50 TJ PERRIN MD Jun 05, 2024 08:46
== END 2024-06-04 15:17 | disposition home or self-care (01) | DRG 189 ==
LOC: EDBD 10:35 → ER 10:35 → TELE 22:06 → TELE-WESTW 06-01 22:10
PROVIDERS: ADMIT Student in an Organized Health Care Education/Training Program; ATTEND Student in an Organized Health Care Education/Training Program
DX: J96.21 Acute and chronic respiratory failure with hypoxia (principal); I50.33 Acute on chronic diastolic (congestive) heart failure; J44.1 Chronic obstructive pulmonary disease with (acute) exacerbation; N30.00 Acute cystitis without hematuria; D68.59 Other primary thrombophilia; I11.0 Hypertensive heart disease with heart failure; Z20.822 Contact with and (suspected) exposure to COVID-19; I48.0 Paroxysmal atrial fibrillation; K27.9 Peptic ulcer, site unspecified, unspecified as acute or chronic, without hemorrhage or perforation; I25.2 Old myocardial infarction; Z79.899 Other long term (current) drug therapy
CPT/HCPCS: 36415; 71045; 80048; 81001; 82270; 83036; 83735; 83880; 84443; 84484; 85025; 85048; 85610; 85730; 87045; 87086; 87426; 87427; 87804; 93005; 93306; 94640; 99291; G0378